=== PATIENT | female | born 1960 | race Caucasian/White ===

== ENCOUNTER 2017-10-15 12:02 | Inpatient (IN) ==
[2017-10-15] MEDS ORDERED: 0.9 % Sodium Chloride 1,000 ML IVC ONE (12:20)
--- NOTE | 2017-10-15 12:24 | Emergency Department Note ---
Disposition Clinical Impression: Acute bronchitis Qualifiers: Bronchitis organism: unspecified organism Qualified Code(s): J20.9 - Acute bronchitis, unspecified Dyspnea Qualifiers: Dyspnea type: shortness of breath Qualified Code(s): R06.02 - Shortness of breath Disposition: Admitted As Inpatient Condition: Good Referrals: Ko Rivera MD [Primary Care Provider] - Zen Tavares [Family Provider] - Forms: ED Satisfaction Letter Time of Disposition: 14:54 General Adult HPI - General Chief complaint: ED Shortness of Breath/Dyspnea Stated complaint: ANCELMO Time Seen by Provider: 10/15/17 12:06 Source: patient Limitations: no limitations Nursing Notes Reviewed: Yes Vital Signs Reviewed: Yes - History of Present Illness HPI Narrative: Ms. Mcrae is a very pleasant 57-year-old female with a past history of hypertension and prior pulmonary embolus who presents to the [facility] Emergency department with a chief complaint of dyspnea for 1 month's duration. She complains of associated productive cough and mild discomfort between her scapula with breathing. She denies any fevers. She reports this increased work of breathing has not progressively worse over the last 30 days and was seen last week at a urgent care and was diagnosed with bronchitis. She was given a Z-Danial and steroids and inhaler. Patient finished her regimen 2 days ago and noted no significant improvement in her symptoms. She denies any externional chest pain. Denies any lower extremity edema or recent travel. She reports she had a pulmonary embolus roughly 30 years ago and has had no complications since then. No other complaints at this time. Pain Scale: 4 - Related Data Home Medications Medication Instructions Recorded Confirmed Venlafaxine HCl [Venlafaxine HCl 75 mg PO DAILY 10/09/17 10/15/17 ER] Atenolol [Tenormin] 50 mg PO DAILY 10/15/17 10/15/17 Chlorthalidone 25 mg PO DAILY 10/15/17 10/15/17 Codeine Phosphate/Guaifenesin 5 ml PO Q6H 10/15/17 10/15/17 [Robafen AC Oral Solution] Loratadine [Allergy Relief] 10 mg PO DAILY 10/15/17 10/15/17 Allergies Allergy/AdvReac Type Severity Reaction Status Date / Time lisinopril Allergy Anaphylaxis Verified 10/15/17 12:06 Review of Systems: Constitutional: No fever Vision: No blurred vision ENT: No rhinorrhea Respiratory: cough Cardiovascular: No chest pain Allergic: No allergies : No blood in urine GI: No blood in stool Hematologic: No bruising Dermatologic: No skin rash Musculoskeletal: No pain in the extremities Neuro: No numbness of the extremities Past Medical History - Past Medical History Medical history: Reports: hypertension Psychiatric history: Reports: depression - Social History Smoking Status: Never smoker Smokeless Tobacco Status: No Alcohol use: Reports: none Drug use: Reports: none Physical Exam CONSTITUTIONAL: Alert and oriented X3 in no apparent distress HEAD: Normocephalic; atraumatic. EYES: Ocular movements grossly intact, no scleral icterus, no drainage, no conjunctival injection NOSE: The nose is normal in appearance without rhinorrhea Oropharynx: pink/moist RESP: NRD without use of accessory musculature, CTA b/l with no wheezes/rales/ rhonchi CARD: Regular rhythm, without murmurs, rubs, or gallop ABD: grossly normal, soft, non-tender, no guarding/distention/rigidity SKIN: normal appearance, no pallor/diaphoresis,mottling,jaundice,cyanosis EXT: PT pulses 2+ and symmetrical; no lateralizing edema; no other lesions seen PSYCH: appropriate mood/affect - General Limitations: no limitations General appearance: alert, in no apparent distress Course Course Narrative: Patient seen and examined at bedside at 1215. Vital signs were reviewed and normal. No tachycardia or hypoxia. Physical examination demonstrates lungs are clear to auscultation bilaterally with patient showing a mild increase work of breathing during examination. No accessory muscle use. Lower extremity examination demonstrates no lateralizing edema. The presence of one month duration of worsening dyspnea and history of pulmonary embolus suspicion for PE at this time. Patient is only complaining of dyspnea and cough. Denies any anginal chest pain at this time. We will begin workup with CTA of the chest, 12 -lead, chest x-ray, CBC, BMP and troponin. 1 L of IV fluids were administered. Patient appears comfortable at this time. Disposition pending. 1243: Repeat EKG showing slight ST elevations in III and AVF with ST depression in AVL when compared to previous at 1105 today from [facility]. Called on-call search advertising strategist within ten minutes, Dr. Mario who will come to the ED for further review. Initial trop neg. He recommended repeating EKGs with deep inspiration and exhalation. Of note, three consecutive EKGs did not drastically change the electrical conductivity of EKG in leads III AVF, and AVL but does fluctuate towards baseline. We will proceed with CTA chest to rule out PE, gave ASA and ACS dosing heparin for now. Patient denied any active bleeding. 1337: CBC and BMP show mild leukocytosis fo 12.7 and potassium 2.8. Potassium rider given. Repeat trop ordered. 1359: CTA showed no acute pulmonary embolus or other abnormality. Will discuss results with Dr. Mario pending trop result to determine if LHC is recommended today. 1431: Repeat trop neg. Patient is not experiencing any chest pain at this time. Discussed case with Dr. Mario who recommended no catherization but admission for observation. He will follow patient during her stay. Will begin treatment for bronchitis and possible RAD. Duoneb and RIP ordered. Patient understands and agrees to plan. 1513: Spoke with Hospitalist, Dr. Ken who accepted patient for observation. Shared decision making was made with patient and agreed to plan. Vital Signs Temperature 97.3 F L 10/15/17 12:03 Pulse Rate 50 10/15/17 12:03 Respiratory Rate 18 10/15/17 12:03 Blood Pressure 168/81 10/15/17 12:03 O2 Sat by Pulse Oximetry 96 10/15/17 12:03 Temperature 97.3 F L 10/15/17 12:03 Pulse Rate 50 10/15/17 12:03 Respiratory Rate 18 10/15/17 12:03 Blood Pressure 168/81 10/15/17 12:03 O2 Sat by Pulse Oximetry 96 10/15/17 12:03 Oxygen Delivery Oxygen Delivery Room Air Medical Decision Making - Medical Records Medical records reviewed: Yes I reviewed the patient's medical records. - Lab Data Lab results reviewed: Yes I reviewed the patient's lab results. Result diagrams: 10/15/17 12:29 10/15/17 12:29 Lab Results 10/15/17 10/15/17 10/15/17 Range/Units 12:29 12:29 12:29 WBC 12.7 H (4.3-11.1) K/mcL RBC 5.01 H (3.82-4.97) M/mcL Hgb 15.3 (11.5-15.4) g/dL Hct 43.5 (35.3-44.9) % MCV 86.8 (83.0-100.0) fL MCH 30.5 (28.0-33.3) pg MCHC 35.2 (31.6-35.5) g/dL RDW 13.8 (11.5-14.5) % Plt Count 333 (140-400) K/mcL MPV 9.9 (9.4-12.4) fL Immature Gran % 2.2 (0-4) % Seg Neutrophils % 73.3 % Lymphocytes % 19.4 % Monocytes % 3.7 % Eosinophils % 0.9 % Basophils % 0.5 % Neutrophils # 9.3 H (1.6-8.9) K/mcL Lymphocytes # 2.5 (0.6-4.6) K/mcL Monocytes # 0.5 (0.0-1.3) K/mcL Eosinophils # 0.1 (0.0-0.6) K/mcL Basophils # 0.1 (0.0-0.2) K/mcL PT 10.5 (9.4-12.1) Seconds INR 1.0 APTT 27.3 (26.0-36.0) Seconds Sodium 138 (136-145) mEq/L Potassium 2.8 L (3.5-5.1) mEq/L Chloride 102 (98-107) mEq/L Carbon Dioxide 25 (23-29) mEq/L BUN 17 (6-20) mg/dL Creatinine 0.70 (0.60-1.20) mg/dL Est GFR ( Amer) > 60 (> 60) Est GFR (Non-Af Amer) > 60 (> 60) BUN/Creatinine Ratio 24 (6-26) Glucose 114 H (70-105) mg/dL Calculated Osmolality 288 (280-300) Calcium 9.8 (8.6-10.3) mg/dL Troponin I < 0.03 (< 0.04) ng/mL 10/15/17 Range/Units 13:54 WBC (4.3-11.1) K/mcL RBC (3.82-4.97) M/mcL Hgb (11.5-15.4) g/dL Hct (35.3-44.9) % MCV (83.0-100.0) fL MCH (28.0-33.3) pg MCHC (31.6-35.5) g/dL RDW (11.5-14.5) % Plt Count (140-400) K/mcL MPV (9.4-12.4) fL Immature Gran % (0-4) % Seg Neutrophils % % Lymphocytes % % Monocytes % % Eosinophils % % Basophils % % Neutrophils # (1.6-8.9) K/mcL Lymphocytes # (0.6-4.6) K/mcL Monocytes # (0.0-1.3) K/mcL Eosinophils # (0.0-0.6) K/mcL Basophils # (0.0-0.2) K/mcL PT (9.4-12.1) Seconds INR APTT (26.0-36.0) Seconds Sodium (136-145) mEq/L Potassium (3.5-5.1) mEq/L Chloride (98-107) mEq/L Carbon Dioxide (23-29) mEq/L BUN (6-20) mg/dL Creatinine (0.60-1.20) mg/dL Est GFR ( Amer) (> 60) Est GFR (Non-Af Amer) (> 60) BUN/Creatinine Ratio (6-26) Glucose (70-105) mg/dL Calculated Osmolality (280-300) Calcium (8.6-10.3) mg/dL Troponin I < 0.03 (< 0.04) ng/mL - Radiology Data Radiology results reviewed: Yes I reviewed the patient's radiology results. Chest CTA 10/15/17 12:20 IMPRESSION: No evidence of pulmonary embolism or acute pulmonary abnormality. D/ / Matheus Gutierres MD / Matheus Gutierres MD Interpreting Provider: Matheus Gutierres MD - EKG Data EKG #1 EKG attestation: Yes I reviewed and interpreted this EKG. EKG results narrative: 1243: Current 47, CT 152, QRS 110, QTC 42% with sinus bradycardia. There are mild ST elevations in 3 and aVF with reciprocal changes in aVL. There are new Q waves present in leads 3 and aVF as well. EKG #2 EKG attestation: Yes I reviewed and interpreted this EKG. EKG results narrative: 1315: Heart rate 52, CT 150, QRS 110, QTC 42 systolic sinus bradycardia. EKG was performed holding deep inspiration. No definitive changes seen in the prior minimal ST elevations in lead 3 and aVF with reciprocal changes in aVL. EKG #3 EKG attestation: Yes I reviewed and interpreted this EKG. EKG results narrative: 1316: Heart rate 47, CT 131, QRS 110 and QTC 471. Consistent with sinus bradycardia. This EKG is performed with holding deep expiration. There is minimal progression of the ST elevations in lead 3 and aVF with reciprocal changes to the baseline. EKG #4 EKG attestation: Yes I reviewed and interpreted this EKG. EKG results narrative: 1316: Heart rate 54, CT 149, QRS 114, QTc 47 consistent with sinus bradycardia. The study was performed with patient holding deep inspiration at a 30 degree incline. There is mild progression of the minimal ST elevation in lead 3 and aVF towards the baseline with reciprocal changes in aVL. Attestation Statement - Attestation Attestation: I, Jai Uribe DO, examined this patient [id number] and my medical decision-making was reviewed with Ham Perez PGY-1, Resident Physician. I agree with the documented findings, disposition and treatment plan as described except to the extent set forth below. Please see my progress notes for details.
[2017-10-15 12:37] LABS: Basophils # 0.1 K/mcL (0.0-0.2); Basophils % 0.5 %; Eosinophils # 0.1 K/mcL (0.0-0.6); Eosinophils % 0.9 %; Hematocrit 43.5 % (35.3-44.9); Hemoglobin 15.3 g/dL (11.5-15.4); Immature Granulocytes % 2.2 % (0-4); Lymphocytes # 2.5 K/mcL (0.6-4.6); Lymphocytes % 19.4 %; Mean Corpuscular HGB Conc 35.2 g/dL (31.6-35.5); Mean Corpuscular Hemoglobin 30.5 pg (28.0-33.3); Mean Corpuscular Volume 86.8 fL (83.0-100.0); Mean Platelet Volume 9.9 fL (9.4-12.4); Monocytes # 0.5 K/mcL (0.0-1.3); Monocytes % 3.7 %; Neutrophils # 9.3 K/mcL (1.6-8.9); Platelet Count 333 K/mcL (140-400); Red Blood Count 5.01 M/mcL (3.82-4.97); Red Cell Distribution Width 13.8 % (11.5-14.5); Segmented Neutrophils % 73.3 %
[2017-10-15 13:03] LABS: BUN/Creatinine Ratio 24 (6-26); Blood Urea Nitrogen 17 mg/dL (6-20); Calcium 9.8 mg/dL (8.6-10.3); Carbon Dioxide 25 mEq/L (23-29); Chloride 102 mEq/L (98-107); Glucose 114 mg/dL (70-105); Osmolality,Calculated 288 (280-300); Potassium 2.8 mEq/L (3.5-5.1); Sodium 138 mEq/L (136-145); Troponin I < 0.03 ng/mL (< 0.04); eGFR For African Americans > 60 (> 60); eGFR For Non-African Americans > 60 (> 60)
[2017-10-15] MEDS ORDERED: Aspirin 81 MG TAB.CHEW PO STA (13:12)
--- NOTE | 2017-10-15 13:21 | Emergency Department Note ---
Disposition Clinical Impression: Acute bronchitis, Dyspnea Disposition: Admitted As Inpatient Condition: Good Time of Disposition: 16:48 General Adult HPI - General Chief complaint: ED Shortness of Breath/Dyspnea Stated complaint: ANCELMO Time Seen by Provider: 10/15/17 12:06 Source: patient Limitations: no limitations - History of Present Illness Pain Scale: 4 - Related Data Home Medications Medication Instructions Recorded Confirmed Venlafaxine HCl [Venlafaxine HCl 75 mg PO DAILY 10/09/17 10/09/17 ER] Atenolol [Tenormin] 50 mg PO DAILY 10/15/17 10/15/17 Chlorthalidone 25 mg PO DAILY 10/15/17 10/15/17 Codeine Phosphate/Guaifenesin 5 ml PO Q6H 10/15/17 10/15/17 [Robafen AC Oral Solution] Loratadine [Allergy Relief] 10 mg PO DAILY 10/15/17 10/15/17 Allergies Allergy/AdvReac Type Severity Reaction Status Date / Time lisinopril Allergy Anaphylaxis Verified 10/15/17 12:06 Past Medical History - Past Medical History Medical history: Reports: hypertension Psychiatric history: Reports: depression - Social History Smoking Status: Never smoker Smokeless Tobacco Status: No Alcohol use: Reports: none Drug use: Reports: none Physical Exam - General Limitations: no limitations General appearance: alert, in no apparent distress Course Vital Signs Temperature 97.3 F L 10/15/17 12:03 Pulse Rate 50 10/15/17 12:03 Respiratory Rate 18 10/15/17 12:03 Blood Pressure 168/81 10/15/17 12:03 O2 Sat by Pulse Oximetry 96 10/15/17 12:03 Temperature 98.2 F 10/15/17 16:20 Pulse Rate 56 10/15/17 16:20 Respiratory Rate 16 10/15/17 16:20 Blood Pressure 125/75 10/15/17 16:20 O2 Sat by Pulse Oximetry 94 10/15/17 16:20 Oxygen Delivery Oxygen Delivery Room Air Medical Decision Making - Lab Data Result diagrams: 10/15/17 12:29 10/15/17 12:29 Lab Results 10/15/17 10/15/17 10/15/17 Range/Units 12:29 12:29 12:29 WBC 12.7 H (4.3-11.1) K/mcL RBC 5.01 H (3.82-4.97) M/mcL Hgb 15.3 (11.5-15.4) g/dL Hct 43.5 (35.3-44.9) % MCV 86.8 (83.0-100.0) fL MCH 30.5 (28.0-33.3) pg MCHC 35.2 (31.6-35.5) g/dL RDW 13.8 (11.5-14.5) % Plt Count 333 (140-400) K/mcL MPV 9.9 (9.4-12.4) fL Immature Gran % 2.2 (0-4) % Seg Neutrophils % 73.3 % Lymphocytes % 19.4 % Monocytes % 3.7 % Eosinophils % 0.9 % Basophils % 0.5 % Neutrophils # 9.3 H (1.6-8.9) K/mcL Lymphocytes # 2.5 (0.6-4.6) K/mcL Monocytes # 0.5 (0.0-1.3) K/mcL Eosinophils # 0.1 (0.0-0.6) K/mcL Basophils # 0.1 (0.0-0.2) K/mcL PT 10.5 (9.4-12.1) Seconds INR 1.0 APTT 27.3 (26.0-36.0) Seconds Sodium 138 (136-145) mEq/L Potassium 2.8 L (3.5-5.1) mEq/L Chloride 102 (98-107) mEq/L Carbon Dioxide 25 (23-29) mEq/L BUN 17 (6-20) mg/dL Creatinine 0.70 (0.60-1.20) mg/dL Est GFR ( Amer) > 60 (> 60) Est GFR (Non-Af Amer) > 60 (> 60) BUN/Creatinine Ratio 24 (6-26) Glucose 114 H (70-105) mg/dL Calculated Osmolality 288 (280-300) Calcium 9.8 (8.6-10.3) mg/dL Troponin I < 0.03 (< 0.04) ng/mL 10/15/17 Range/Units 13:54 WBC (4.3-11.1) K/mcL RBC (3.82-4.97) M/mcL Hgb (11.5-15.4) g/dL Hct (35.3-44.9) % MCV (83.0-100.0) fL MCH (28.0-33.3) pg MCHC (31.6-35.5) g/dL RDW (11.5-14.5) % Plt Count (140-400) K/mcL MPV (9.4-12.4) fL Immature Gran % (0-4) % Seg Neutrophils % % Lymphocytes % % Monocytes % % Eosinophils % % Basophils % % Neutrophils # (1.6-8.9) K/mcL Lymphocytes # (0.6-4.6) K/mcL Monocytes # (0.0-1.3) K/mcL Eosinophils # (0.0-0.6) K/mcL Basophils # (0.0-0.2) K/mcL PT (9.4-12.1) Seconds INR APTT (26.0-36.0) Seconds Sodium (136-145) mEq/L Potassium (3.5-5.1) mEq/L Chloride (98-107) mEq/L Carbon Dioxide (23-29) mEq/L BUN (6-20) mg/dL Creatinine (0.60-1.20) mg/dL Est GFR ( Amer) (> 60) Est GFR (Non-Af Amer) (> 60) BUN/Creatinine Ratio (6-26) Glucose (70-105) mg/dL Calculated Osmolality (280-300) Calcium (8.6-10.3) mg/dL Troponin I < 0.03 (< 0.04) ng/mL Attestation Statement - Attestation Attestation: I, Jai Uribe DO, examined this patient [id number] and my medical decision-making was reviewed with Ham Perez PGY-1, Resident Physician. I agree with the documented findings, disposition and treatment plan as described except to the extent set forth below. Please see my progress notes for details. 57-year-old female presents to the emergency room with persistent nonproductive cough for the last 3 weeks. She is also describes pain in her back. Patient denied any active chest pain this point. She said her symptoms are worse when she breathes. The symptoms of been the same over the last several weeks troponin progressively getting worse. She was seen an outside urgent care approximately 1 hour 45 minutes prior to coming in our emergency room. She presented here describing the chest discomfort and cough. She did not describe any anginal-like chest pain. EKG was collected at 1243 during the initial evaluation the patient. There was concerning changes with possible 0.5 mm elevation in lead 3 and aVF. I compared this to the EKG done approximately an hour and 45 minutes prior to coming in here and this does show changes at this point. Stimulator was not called upon to the molding fitter was contacted considering said infarct probably old. Patient's symptoms are not consistent with angina this point. Patient will most including catheterization. Dr. Mario has come down review the EKG and the presentation at the bedside here in the emergency room and recommended catheterization at this time. Patient's symptoms and presentation were here to the emergency room EKG was collected 1240. Initial EKG for comparison is from the outside facility. Patient was not describing chest pain on presentation she only had a productive cough and shortness of breath. Patient also had some pain radiate into the mid scapular region of her back. Patient arrived to emergency room while we were the bedside with a critically ill patient. Patient's EKG was collected approximately 35 minutes after arrival here. compared to the one that was collected approximate 1 hour 45 minutes prior to arrival. There was changes noted at this time so an immediate repeat EKG was collected Within 5 minutes. A repeat EKG and is evaluated at 1243. Immediately the distributor of directories was contacted for his interpretation. There is concern for subtle 0.5 elevation in leads 3 and aVF with reciprocal changes and depression in lead aVL. Dr. Mario was immediately at the bedside here in the emergency room and evaluated the patient. 3 repeat EKGs are completed under the direct visualization Dr. Mario. At this point an emergent STEMI will not be called considering there is a wandering baseline in the ST segment portion of leads 3 and aVL dependent on the patient's position. He did recommend a repeat troponin and The patient on heparin drip and getting a CT angiography of the chest at this time. Patient is otherwise been clinically stable. Initial presentation was concerning for pulmonary emboli considering the patient's history non-productive cough and the presenting issue is a persistent cough and shortness of breath. Patient will most likely require catheterization during the treatment course. We will continue to monitor closely as imaging modality is resulted and disposition is determined. Currently the patient does not meet STEMI criteria based on the conversations with the molding fitter as well as the repeat EKGs and will be held at this point is for the patient did not present with typical chest pain-like presentation. She is describing shortness of breath and pain in between her shoulder blades in her back. Patient's had an event like this previously in the past and negative catheterization at this time. Decisions for cardiac catheterization progression course of care were made in conjunction with the patient, Dr. Mario, and myself. 45 minutes of critical care of this patient's treatment course at this time. Emergent CT angiography of the chest to be completed at this time. See detailed documentation of the physical exam, medical intervention, medical decision- making and disposition in the resident physician's note. 1400 CT angiography of the chest is unremarkable for pulmonary emboli or signs of infiltrate at this point. 1435 Repeat troponin is negative. Dr. Mario was informed of this. Recommended no catheterization but admission for further treatment course and management. Patient otherwise clinically stable. Repeat bradycardia treatment will be given to continue to treat with the suspected his bronchitis and reactive airway disease. Otherwise her labs are completely unremarkable this point she has no symptoms or pain. Patient did have slightly low potassium will be repleted here in the emergency room. She has a slightly elevated white blood cell count is could be because of the vomiting as well as the coughing and congestion. No clinical signs of pneumonia based on CT scan or chest x-ray. Patient was admitted to the hospitalist this time for definitive management and evaluation
[2017-10-15] MEDS ORDERED: *HR* Heparin 5,000 UNIT/ML VIAL IVP PRN ×2 (13:22)
[2017-10-15] MEDS ORDERED: *HR* Heparin 5,000 UNIT/ML VIAL IVP ONE (13:22)
[2017-10-15 13:41] LABS: Prothrombin Time 10.5 Seconds (9.4-12.1)
[2017-10-15 13:44] LABS: Activated Partial Thrombo Time 27.3 Seconds (26.0-36.0)
[2017-10-15] MEDS: Heparin 25,000 UNIT/500 ML D5W 25,000 UNIT/500 ML BAG IVC SCH (14:05)
[2017-10-15] MEDS ORDERED: Ipratropium/Albuterol Neb 3 ML IH ONE (14:18)
[2017-10-15] MEDS ORDERED: Naloxone 0.4 MG/ML INJ IVP PRN (16:15)
[2017-10-15] MEDS ORDERED: MethylPREDNISolone 40 MG/ML VIAL IVP ONE (16:37)
--- NOTE | 2017-10-15 16:43 | Internal Med History&Physical ---
Date of Encounter: 10/15/17 Time of Encounter: 15:30 Internal Medicine - H&P: HPI Chief complaint: SOB/Dyspnea Admitted From: Emergency Dept Plans for Post Hospital Care: Home History of present illness: Ms. Mcrae is a 57 year old female w/PMH of HTN and HLD presents from the ED w/ CC of SOB and dyspnea since September 29. Pt. states she went to Urgent Care and was dx w/bronchitis and placed on PO Z-pack and steroids w/no improvement. Reports unproductive cough and dizziness w/ambulation. Dyspnea worse w/ exertion. Reports tessalon did not help cough. Also reports chronic bradycardia w/HR in 40s occasionally. Pt. denies recent illness, fever, chills, nausea, vomiting, changes in vision, headache, chest pain, palpitations, numbness, tingling, pre-syncope, or syncope. Past Med Surg Social Fam HX - Past Medical History Source: patient, old records reviewed Medical history: hyperlipidemia, hypertension Psychiatric history: depression - Social History Smoking Status: Former smoker Packs per day: 2 PPD - Reports quitting 35 years ago Smokeless Tobacco Status: No Alcohol use: none Drug use: none Current living situation: Home, With Family Activity Level: Independent ambulation Recent Out of Country Travel Within the Last 8 Weeks: No Exposure or Possible Exposure to Illness During Travel: No - Family History Father Race: Family Member Ethnicity: Non- Living Status: Age at : 62 Cause of : Pneumonia Hx Family Cardiac Disorders: Yes ([place]) Hx Family Cancer: Yes (Skin, Prostate) Hx Family Neurologic Disorders: Yes (Alzheimer's disease) Mother Race: Family Member Ethnicity: Non- Living Status: Age at : 63 Cause of : Leukemia Hx Family Cancer: Yes (Leukemia) Brother Race: Family Member Ethnicity: Non- Living Status: Still Living Hx Family Medical Disorders: No Sister Race: Family Member Ethnicity: Non- Living Status: Still Living Hx Family Cardiac Disorders: Yes (HTN) Internal Medicine - H&P: Meds Venlafaxine HCl [Venlafaxine HCl ER] 75 mg PO DAILY 10/09/17 [History] Atenolol [Tenormin] 50 mg PO DAILY 10/15/17 [History] Chlorthalidone 25 mg PO DAILY 10/15/17 [History] Codeine Phosphate/Guaifenesin [Robafen AC Oral Solution] 5 ml PO Q6H 10/15/17 [ History] Loratadine [Allergy Relief] 10 mg PO DAILY 10/15/17 [History] 3 Allergy/AdvReac Type Severity Reaction Status Date / Time lisinopril Allergy Anaphylaxis Verified 10/15/17 12:06 All Systems PM: A 10-system review of systems was performed and is negative for pertinent findings except as documented above in the HPI. - Constitutional Constitutional: no chills, no fever(s), no night sweats - EENT Eyes: no change in vision, no discharge, no pain, no photophobia Ears: no ear discharge, no ear pain, no tinnitus Nose, mouth and throat: no dysphagia, no nasal discharge, no neck pain, no sore throat - Breasts Breasts: as per HPI - Cardiovascular Cardiovascular ROS IM: as per HPI, dyspnea, dyspnea on exertion, irregular heart rhythm (Chronic bradycardia), no chest pain, no diaphoresis, no lightheadedness, no palpitations, no syncope - Respiratory Respiratory: as per HPI, cough, dyspnea on exertion, no dyspnea, no wheezing, no excessive phlegm production - Gastrointestinal Gastrointestinal: no abdominal pain, no diarrhea, no hematemesis, no hematochezia, no melena, no nausea, no vomiting - Genitourinary Genitourinary: no change in urinary stream, no dysuria, no flank pain, no hematuria Menstruation: as per HPI - Musculoskeletal Musculoskeletal ROS IM: no numbness, no tingling - Integumentary Integumentary IM: no rash, no unusual bruising - Neurological Neurological ROS: as per HPI, dizziness, no confusion, no convulsions, no focal weakness, no numbness, no tingling, no tremor(s) - Psychiatric Psychiatric: as per HPI, depression - Endocrine Endocrine IM: as per HPI - Hematologic/Lymphatic Hematologic/Lymphatic: no easy bruising - Allergic/Immunologic Allergic/Immunologic: as per HPI - Constitutional Vitals: Temp Pulse Resp BP Pulse Ox 98.2 F 56 16 125/75 94 10/15/17 16:20 10/15/17 16:20 10/15/17 16:20 10/15/17 16:20 10/15/17 16:20 General appearance: Present: cooperative, mild distress (Respiratory w/cough), A &O X 3, morbidly obese, pleasant, answers questions appropriately - Head Head exam: Present: atraumatic, normocephalic - Eye Eye exam: Present: PERRL, conjuntiva pink, sclera anicteric Pupils: Present: PERRL - ENT ENT exam: Present: normal exam - Neck Neck exam general surgery: Present: normal inspection, supple, trachea midline. Absent: lymphadenopathy - Respiratory Respiratory exam: Present: decreased breath sounds - Cardiovascular Cardiovascular exam: Present: bradycardia, +S1, +S2 - GI/Abdominal GI/Abdominal exam: Present: normal bowel sounds, soft, no peritoneal signs. Absent: distended, tenderness - Rectal Rectal exam: Present: deferred - Additional comments: exam deferred. - Extremities Exam Extremities exam: Present: warm, radial pulses palpable and symmetrical. Absent : calf tenderness, cyanotic, pedal edema - Back Exam Back exam: Present: normal inspection - Neurological Exam Neurological exam: Present: CN II-XII intact, oriented X3, no focal deficits. Absent: pronater drift, facial droop, speech deficit - Psychiatric Psychiatric exam: Present: normal affect, normal mood - Skin Skin exam: Present: dry, intact Internal Med - H&P Results - Labs CBC & Chem 7: 10/15/17 12:29 10/15/17 12:29 - EKG Data EKG shows normal: sinus rhythm - EKG Data Prior EKG available for review: yes EKG comments: 10/15/17 16:50 EKG dated 10/15/17 @ 11:05:59 shows sinus bradycardia with moderate intraventricular conduction delay and moderate ST depression. EKG dated 10/15/17 @ 12:43:18 shows sinus bradycardia with left ventricular hypertrophy and ST-T change, inferior myocardial infarction [40+ ms Q wave and/ or ST/T abnormality in II/aVF] (probably old). EKG dated 10/15/17 @ 13:15:35 shows sinus bradycardia with inferior myocardial infarction [40+ ms Q wave and/or ST/T abnormalitu in II/aVF] (probably old). EKG dated 10/15/17 @ 13:16:18 shows sinus bradycardia with possible inferior myocardial infarction [30 ms Q wave in II/aVF] (probably old). EKG dated 10/15/17 @ 13:16:58 shows sinus bradycardia with inferior myocardial infarction [40+ ms Q wave and/or ST/T abnormality in II/aVF] (probably old). - Diagnostic Studies Other Images Additional comments: Impressions Chest CTA 10/15/17 12:20 IMPRESSION: No evidence of pulmonary embolism or acute pulmonary abnormality. D/ / Matheus Gutierres MD / Matheus Gutierres MD Interpreting Provider: Matheus Gutierres MD - Assessment and plan (1) Acute bronchitis Current Visit: Yes Status: Acute Assessment and plan: Acute bronchitis. Pt. reports dx at Urgent Care one week ago and Rx for PO Z- pack and steroids which pt. states were ineffective. IVPB doxycycline 100 mg Q12HR ordered for infection coverage. Respiratory infection panel. Supplemental O2 w/titration and SpO2 monitoring. Xopenex 1.25 Q6HR. Mucinex for cough. Current WBC 12.7 on admission. Will monitor pt. and f/u labs. Pt. discussed w/ Dr. Ken who agrees w/plan of care. Pt. is moderate risk for further morbidity and infection based on current unresolved bronchitis from failed OP tx , SOB/Dyspnea, abnormal EKGs, hx, and risk factors. Observation. Qualifiers: Bronchitis organism: unspecified organism Qualified Code(s): J20.9 - Acute bronchitis, unspecified (2) Abnormal EKG Current Visit: Yes Status: Acute Assessment and plan: Series of abnormal EKGs today showing slight ST elevations in II and aVF when compared to earlier EKG at [facility]. Cardiology saw pt. in ED. Dr. Mario recommends observation admission w/o [facility]. Heparin drip started in ED. Initial troponin <0.03 and will trend. Aspirin. Continuous cardiac telemetry. Pt. to be monitored closely. (3) Hypokalemia Current Visit: Yes Status: Acute Assessment and plan: Acute hypokalemia w/potassium of 2.8 on admission. IVPB potassium ordered in ED. Will re-check potassium @ 23:00 and administer PO potassium if warranted. Monitor pt. and f/u labs. Continuous telemetry. (4) Dyspnea Current Visit: Yes Status: Acute Assessment and plan: Acute dyspnea and SOB which worsens w/exertion. SOB since September 29. Dx of bronchitis at Urgent Care. Supplemental O2 w/titration and SpO2 monitoring. Xopenex 1.25 Q6HR scheduled. Mucinex for cough. Qualifiers: Dyspnea type: shortness of breath Qualified Code(s): R06.02 - Shortness of breath; R06.00 - Dyspnea, unspecified; R06.01 - Orthopnea (5) Cough Current Visit: Yes Status: Acute Assessment and plan: Acute cough that pt. reports is unproductive. Mucinex. Xopenex IH. (6) HTN (hypertension) Current Visit: Yes Status: Chronic Assessment and plan: Hx of chronic HTN. Monitor pt. and VS. Continue pts. Atenolol and chlorthalidone. Qualifiers: Hypertension type: essential hypertension Qualified Code(s): I10 - Essential (primary) hypertension (7) HLD (hyperlipidemia) Current Visit: Yes Status: Chronic Assessment and plan: Hx of chronic HLD. Lipid panel in a.m. labs. Patient does not currently take statin. Consider adding statin the patient's home medication list based on lipid panel results if warranted. Qualifiers: Hyperlipidemia type: pure hypercholesterolemia Qualified Code(s): E78.00 - Pure hypercholesterolemia, unspecified; E78.0 - Pure hypercholesterolemia (8) DVT prophylaxis Current Visit: Yes Status: Acute Assessment and plan: Patient placed on heparin drip for ACS r/o. Monitor pt. for signs of bleeding. - Time Spent With Patient Total time spent is greater than 50% in coordination of care (as documented) at patient's floor/unit and/or counseling patient: 25 - 35 minutes
[2017-10-15 17:56] LABS: Adenovirus Not Detected (Not Detect); Bordetella Pertussis Not Detected (Not Detect); Chlamydophila pneumoniae Not Detected (Not Detect); Coronavirus 229E Not Detected (Not Detect); Coronavirus HKU1 Not Detected (Not Detect); Coronavirus NL63 Not Detected (Not Detect); Coronavirus OC43 Not Detected (Not Detect); Human Metapneumovirus Not Detected (Not Detect); Human Rhinovirus/Enterovirus Not Detected (Not Detect); Influenza A Subtype 2009 H1 Not Detected (Not Detect); Influenza A Untypeable Not Detected (Not Detect); Influenza B ***DETECTED*** (Not Detect); Mycoplasma pneumoniae Not Detected (Not Detect); Parainfluenza Virus 1 Not Detected (Not Detect); Parainfluenza Virus 2 Not Detected (Not Detect); Parainfluenza Virus 3 Not Detected (Not Detect); Parainfluenza Virus 4 Not Detected (Not Detect); Respiratory Syncytial Virus Not Detected (Not Detect)
[2017-10-15] MEDS: Doxycycline 100 MG in 0.9 % Sodium Chloride Mini Bag 100 ML IVPB SCH (18:22)
[2017-10-15] MEDS: Levalbuterol Neb 1.25 MG/3 ML IH SCH (22:25)
[2017-10-16 03:26] LABS: Basophils % 0.2 %; Hematocrit 42.3 % (35.3-44.9); Hemoglobin 14.2 g/dL (11.5-15.4); Immature Granulocytes % 1.5 % (0-4); Immature Platelets 2.8 % (1.1-6.1); Lymphocytes # 1.5 K/mcL (0.6-4.6); Lymphocytes % 11.9 %; Mean Corpuscular HGB Conc 33.6 g/dL (31.6-35.5); Mean Corpuscular Hemoglobin 29.4 pg (28.0-33.3); Mean Corpuscular Volume 87.6 fL (83.0-100.0); Mean Platelet Volume 10.1 fL (9.4-12.4); Monocytes # 0.2 K/mcL (0.0-1.3); Monocytes % 1.2 %; Platelet Count 287 K/mcL (140-400); Red Blood Count 4.83 M/mcL (3.82-4.97); Red Cell Distribution Width 13.9 % (11.5-14.5); Segmented Neutrophils % 85.2 %
[2017-10-16] MEDS: Acetaminophen 325 MG TABLET PO PRN (03:42)
[2017-10-16 03:55] LABS: Alanine Aminotransferase 24 Units/L (7-52); Albumin 3.8 g/dL (3.5-5.7); Albumin/Globulin Ratio 1.3 (1.1-2.2); Alkaline Phosphatase 56 Units/L (34-104); Aspartate Amino Transferase 19 Units/L (13-39); BUN/Creatinine Ratio 25 (6-26); Bilirubin,Total 0.3 mg/dL (0.3-1.0); Blood Urea Nitrogen 17 mg/dL (6-20); Calcium 8.9 mg/dL (8.6-10.3); Carbon Dioxide 19 mEq/L (23-29); Chloride 104 mEq/L (98-107); Chol/HDL Ratio 5.1 (0-4.9); Cholesterol 280 mg/dL (< 200); Globulin 2.9 g/dL (2.4-3.5); Glucose 187 mg/dL (70-105); HDL Cholesterol 55 mg/dL (40-59); LDL Cholesterol,Calculated 196 mg/dL (0-99); Magnesium 1.9 mg/dL (1.6-2.6); Osmolality,Calculated 290 (280-300); Potassium 3.3 mEq/L (3.5-5.1); Sodium 137 mEq/L (136-145); Total Protein 6.7 g/dL (6.4-8.9); Triglycerides 143 mg/dL (< 150); eGFR For African Americans > 60 (> 60); eGFR For Non-African Americans > 60 (> 60)
[2017-10-16] MEDS: Levalbuterol Neb 1.25 MG/3 ML IH SCH ×4 (04:11→21:58)
[2017-10-16] MEDS: Doxycycline 100 MG in 0.9 % Sodium Chloride Mini Bag 100 ML IVPB SCH ×2 (06:11→17:15)
[2017-10-16] MEDS: Loratadine 10 MG TABLET PO SCH (08:38)
[2017-10-16] MEDS: Venlafaxine XR (24 HR) 75 MG CAP.ER.24H PO SCH (08:39)
[2017-10-16 12:09] LABS: Estimated Average Glucose 146 mg/dl; Hemoglobin A1C 6.7 %
[2017-10-16] MEDS: Heparin 25,000 UNIT/500 ML D5W 25,000 UNIT/500 ML BAG IVC SCH (12:16)
--- NOTE | 2017-10-16 13:56 | Cardiology Consult Note ---
<Jose Miguel Clayton - Last Filed: 10/16/17 16:02> Date of Encounter: 10/16/17 Time of Encounter: 13:51 Assessment and Plan (1) Abnormal EKG Current Visit: Yes Status: Acute Patient EKG's were reviewed. New changes seen in lead III appear most likely to be improper lead placement. Changes seen in aVL do appear new, but are minimal. Changes in lead aVF are new but also very minimal. No changes seen in the precordial leads. In the setting of no chest pain, and negative troponin x 3 this is unlikely to be ACS. Plan: - Echo pending - Patient will undergo stress test tomorrow - Stop ACS heparin protocol at this time - Start ASA 81 mg daily (2) HLD (hyperlipidemia) Current Visit: Yes Status: Chronic LDL elevated at 196 patient may require high intensity statin Plan: - Add on atorvastatin 40mg PO - F/u outpatient for recheck and consideration for increasing dose Qualifiers: Hyperlipidemia type: pure hypercholesterolemia Qualified Code(s): E78.00 - Pure hypercholesterolemia, unspecified; E78.0 - Pure hypercholesterolemia (3) Influenza B Current Visit: Yes Status: Acute Management per primary team Discussion w patient/family: The assessment and plan as outlined above was discussed with the patient and/or family members who expressed understanding and agreement. All questions were answered. Thank you for involving us in the care of your patient. Please call with any questions. History of Present Illness Consult date: 10/16/17 Requesting physician: John Ferreira Consult reason: EKG changes Chief complaint: SOB History of present illness: Ms. Mcrae is a 57 year old female with a past medical history of hypertension, hyperlipidemia, and PCI greater than 10 years ago with no stent placement presenting initially for the complaint of shortness of breath has been going on for the past 4 weeks and has been progressively worsening over the past week. Patient was admitted for acute bronchitis and diagnosed with influenza B. The patient had 3 sets of negative troponins. In the emergency department she had an EKG that was done and areas of concern were changes in III, AVF, and aVL. These were new changes when compared to an EKG that had been done an hour and a half prior. The patient had negative troponins 3. She states the dyspnea is exertional. Patient is denying any chest pain, nausea, vomiting, or lower extremity edema. Former smoker. Past Med Surg Social Fam HX - Past Medical History Medical history: hyperlipidemia, hypertension Psychiatric history: depression - Past Surgical History Surgical History: cholecystectomy, hysterectomy, orthopedic, other - Social History Smoking Status: Former smoker Packs per day: 2 PPD - Reports quitting 35 years ago Smokeless Tobacco Status: No Alcohol use: none Drug use: none - Family History Father Race: Family Member Ethnicity: Non- Living Status: Age at : 62 Cause of : Pneumonia Hx Family Cardiac Disorders: Yes ([place]) Hx Family Cancer: Yes (Skin, Prostate) Hx Family Neurologic Disorders: Yes (Alzheimer's disease) Mother Race: Family Member Ethnicity: Non- Living Status: Age at : 63 Cause of : Leukemia Hx Family Cancer: Yes (Leukemia) Brother Race: Family Member Ethnicity: Non- Living Status: Still Living Hx Family Medical Disorders: No Sister Race: Family Member Ethnicity: Non- Living Status: Still Living Hx Family Cardiac Disorders: Yes (HTN) Medications and Allergies Venlafaxine HCl [Venlafaxine HCl ER] 75 mg PO DAILY 10/09/17 [History] Atenolol [Tenormin] 50 mg PO DAILY 10/15/17 [History] Chlorthalidone 25 mg PO DAILY 10/15/17 [History] Codeine Phosphate/Guaifenesin [Robafen AC Oral Solution] 5 ml PO Q6H 10/15/17 [ History] Loratadine [Allergy Relief] 10 mg PO DAILY 10/15/17 [History] 3 Allergy/AdvReac Type Severity Reaction Status Date / Time lisinopril Allergy Anaphylaxis Verified 10/15/17 12:06 All Systems Review: The remainder of the systems were reviewed and are negative - Constitutional Constitutional: fever(s) - Cardiovascular Cardiovascular: diaphoresis, dyspnea on exertion, no chest pain at rest, no chest pain with exertion, no dyspnea at rest, no radiating jaw, neck or arm pain , no lightheadedness, no palpitations, no rapid heart rate - Respiratory Respiratory: cough, dyspnea - Gastrointestinal Gastrointestinal: no abdominal pain, no nausea Physical Examination Vital Signs, Last 4 Hours Temp Pulse Resp BP Pulse Ox 10/16/17 11:41 97.8 F 65 16 125/74 93 General: Conversant, No Apparent Distress HEENT: Atraumatic, Normocephaly, Mucus Membranes Moist Neck: No JVD, Normal carotid pulses Cardiac: Reg Rate and Rhythm, Normal S1 and S2, No Murmur Lungs: Normal Breath Sounds, No Wheeze, Rales, Rhonchi Neuro: Alert and responsive, No focal deficits noted Abdomen: Soft, Non-Tender Skin: No rashes noted on visualized skin Musculoskeletal: No Chest Wall Tenderness Extremities: No Clubbing, No Cyanosis, No Edema, Normal Pulses Results 10/16/17 02:50 10/16/17 02:50 Lab Results 10/15/17 10/15/17 10/15/17 19:53 19:53 22:59 WBC Hgb Hct Plt Count APTT 53.9 H D Sodium Potassium 3.5 Chloride Carbon Dioxide BUN Creatinine Glucose Calcium Magnesium Total Bilirubin AST ALT Alkaline Phosphatase Troponin I < 0.03 10/16/17 10/16/17 10/16/17 02:50 02:50 02:50 WBC 13.0 H Hgb 14.2 Hct 42.3 Plt Count 287 APTT Sodium 137 Potassium 3.3 L Chloride 104 Carbon Dioxide 19 L BUN 17 Creatinine 0.67 Glucose 187 H Calcium 8.9 Magnesium 1.9 Total Bilirubin 0.3 AST 19 ALT 24 Alkaline Phosphatase 56 Troponin I < 0.03 10/16/17 10/16/17 02:50 07:51 WBC Hgb Hct Plt Count APTT 80.2 H 70.5 H Sodium Potassium Chloride Carbon Dioxide BUN Creatinine Glucose Calcium Magnesium Total Bilirubin AST ALT Alkaline Phosphatase Troponin I - EKG Interpretation EKG results cardiology: personally reviewed, sinus rhythm, other (Minmial ST changes in lead aVL and aVF. Most likely incorrect lead placement in III.) Consult Discharge Plan - Plan Referrals: Ko Rivera MD [Primary Care Provider] - 10/24/17 2:00 pm <Tana Mcnulty - Last Filed: 10/16/17 17:14> Date of Encounter: 10/16/17 - Attending Attestation I examined this patient and my medical decision-making was reviewed with the [employer]ST CONTR[employer] SUPERVISOR. I agree with the documented findings, disposition and treatment plan as described. Ms. Mcrae presents with chief complaint of SOB, found to be Influenza B positive. She denies chest pain. All ECGs were reviewed. There are nonspecific changes in lead aVL only. Troponin negative x 4. She does have risk factors for CAD. Recommend stress testing for ischemic evaluation. Patient is in agreement. Recommend aspirin and high intensity statin (LDL 196) . Assessment and Plan Discussion w patient/family: The assessment and plan as outlined above was discussed with the patient and/or family members who expressed understanding and agreement. All questions were answered. Thank you for involving us in the care of your patient. Please call with any questions. History of Present Illness History of present illness: Ms. Mcrae is a 57 year old female All Systems Review: The remainder of the systems were reviewed and are negative Physical Examination Vital Signs, Last 4 Hours Temp Pulse Resp BP Pulse Ox 10/16/17 16:20 98.3 F 65 16 111/64 90 Results 10/16/17 02:50 10/16/17 02:50 Lab Results 10/15/17 10/15/17 10/15/17 19:53 19:53 22:59 WBC Hgb Hct Plt Count APTT 53.9 H D Sodium Potassium 3.5 Chloride Carbon Dioxide BUN Creatinine Glucose Calcium Magnesium Total Bilirubin AST ALT Alkaline Phosphatase Troponin I < 0.03 10/16/17 10/16/17 10/16/17 02:50 02:50 02:50 WBC 13.0 H Hgb 14.2 Hct 42.3 Plt Count 287 APTT Sodium 137 Potassium 3.3 L Chloride 104 Carbon Dioxide 19 L BUN 17 Creatinine 0.67 Glucose 187 H Calcium 8.9 Magnesium 1.9 Total Bilirubin 0.3 AST 19 ALT 24 Alkaline Phosphatase 56 Troponin I < 0.03 10/16/17 10/16/17 02:50 07:51 WBC Hgb Hct Plt Count APTT 80.2 H 70.5 H Sodium Potassium Chloride Carbon Dioxide BUN Creatinine Glucose Calcium Magnesium Total Bilirubin AST ALT Alkaline Phosphatase Troponin I
[2017-10-16] MEDS ORDERED: Furosemide 40 MG/4 ML VIAL IVP ONE (17:00)
[2017-10-16] MEDS: *HR* Heparin 5,000 UNIT/ML VIAL SQ SCH (17:14)
--- NOTE | 2017-10-16 17:47 | Internal Med Progress Note ---
Date of Encounter: 10/16/17 Time of Encounter: 11:20 - Assessment and plan (1) Acute bronchitis Current Visit: Yes Status: Acute Assessment and plan: Acute bronchitis. Failed outpatient. Onset symptoms 3 weeks. Patient reports productive cough, body, fatigue. IVPB doxycycline 100 mg Q12HR ordered for infection coverage. Respiratory infection panel positive for Influenza B. Supplemental O2 w/titration and SpO2 monitoring. Xopenex 1.25 Q6HR. Mucinex for cough. Current WBC 13.0. No fever or tachycardia, no signs of sepsis or sirs. Nebulizer treatments, Mucinex, IV antibiotics, monitor labs labs and vitals Qualifiers: Bronchitis organism: unspecified organism Qualified Code(s): J20.9 - Acute bronchitis, unspecified (2) Dyspnea Current Visit: Yes Status: Acute Assessment and plan: Dyspnea secondary to influenza B, bronchitis. Worse with exertion. Onset approximately 3 weeks ago. Failed outpatient treatment. Plan as above Qualifiers: Dyspnea type: shortness of breath Qualified Code(s): R06.02 - Shortness of breath; R06.00 - Dyspnea, unspecified; R06.01 - Orthopnea (3) HTN (hypertension) Current Visit: Yes Status: Chronic Assessment and plan: Chronic. Continue home medications. Well controlled. Qualifiers: Hypertension type: essential hypertension Qualified Code(s): I10 - Essential (primary) hypertension (4) HLD (hyperlipidemia) Current Visit: Yes Status: Chronic Assessment and plan: Chronic. Continue statin. Qualifiers: Hyperlipidemia type: pure hypercholesterolemia Qualified Code(s): E78.00 - Pure hypercholesterolemia, unspecified; E78.0 - Pure hypercholesterolemia (5) DVT prophylaxis Current Visit: Yes Status: Acute Assessment and plan: Heparin SQ (6) Cough Current Visit: Yes Status: Acute Assessment and plan: Pt reports non-productive cough x 3 weeks. Pt failed outpatient therapy. Influenza B positive. Pt has had symptoms > 72 hours, Tamiflu not started. Mucinex, Nebulizer treatments Can consider phenergan with codeine if cough worsens. (7) Hypokalemia Current Visit: Yes Status: Acute Assessment and plan: Improved after k rider in the ER. Continue supplementation with po 20meq BID. Monitor labs. (8) Abnormal EKG Current Visit: Yes Status: Acute Assessment and plan: Patient has been evaluated by cardiology. She was placed on heparin drip in the emergency department due to EKG changes, heparin drip has been stopped. Cardiology feels that no changes seen in lead 3, likely due to improper lead placement. Changes seen in aVL and aVF are minimal. Troponins are negative. Cardiology has ordered an echocardiogram and stress for tomorrow. *Aspirin 81 mg daily. Continue telemetry - Time Spent With Patient Total time spent is greater than 50% in coordination of care (as documented) at patient's floor/unit and/or counseling patient: less than 15 minutes - Subjective Interval history: Patient was seen and assessed at bedside at 11:20 AM. Family 2 at bedside. Patient reports 3 week history of nonproductive cough with failed outpatient treatment. She denies headache, nausea, vomiting, chest pain, shortness of breath. - Constitutional Vitals: Temp Pulse Resp BP Pulse Ox 98.3 F 65 16 111/64 90 10/16/17 16:20 10/16/17 16:20 10/16/17 16:20 10/16/17 16:20 10/16/17 16:20 General appearance: Present: cooperative, mild distress (Respiratory w/cough), A &O X 3, morbidly obese, pleasant, no acute distress, answers questions appropriately - Head Head exam: Present: atraumatic, normal inspection, normocephalic - Eye Eye exam: Present: normal appearance, conjuntiva pink, sclera anicteric - Neck Neck exam general surgery: Present: normal inspection, supple, trachea midline. Absent: lymphadenopathy, tenderness - Respiratory Respiratory exam: Present: CTAB. Absent: accessory muscle use, chest wall tenderness, prolonged expiratory phase, rales, rhonchi, wheezes - Cardiovascular Cardiovascular exam: Present: RRR, +S1, +S2. Absent: diastolic murmur, gallop, rubs, systolic murmur - GI/Abdominal GI/Abdominal exam: Present: normal bowel sounds, soft. Absent: distended, hepatomegaly, tenderness - Extremities Exam Extremities exam: Present: normal capillary refill, normal inspection, warm, radial pulses palpable and symmetrical. Absent: calf tenderness, cyanotic, pedal edema, tenderness - Neurological Exam Neurological exam: Present: alert, oriented X3, no focal deficits, strengths equal and symetr throughout. Absent: altered, facial droop, speech deficit - Skin Skin exam: Present: dry, intact, normal color, warm. Absent: rash Internal Medicine: Result - Labs CBC & Chem 7: 10/16/17 02:50 10/16/17 02:50 Labs: Short CBC 10/16/17 Range/Units 02:50 WBC 13.0 H (4.3-11.1) K/mcL Hgb 14.2 (11.5-15.4) g/dL Hct 42.3 (35.3-44.9) % Plt Count 287 (140-400) K/mcL Neutrophils # 11.0 H (1.6-8.9) K/mcL BMP 10/15/17 10/16/17 22:59 02:50 Sodium 137 Potassium 3.5 3.3 L Chloride 104 Carbon Dioxide 19 L BUN 17 Creatinine 0.67 Glucose 187 H Calcium 8.9 Cardiac Enzymes 10/15/17 10/16/17 Range/Units 19:53 02:50 Troponin I < 0.03 < 0.03 (< 0.04) ng/mL Liver Function 10/16/17 Range/Units 02:50 Total Bilirubin 0.3 (0.3-1.0) mg/dL AST 19 (13-39) Units/L ALT 24 (7-52) Units/L Alkaline Phosphatase 56 (34-104) Units/L Albumin 3.8 (3.5-5.7) g/dL - ABG Interpretation ABG results: PT/INR, D-dimer PT 10.5 Seconds (9.4-12.1) 10/15/17 12:29 Consult Discharge Plan - Plan Referrals: Ko Rivera MD [Primary Care Provider] - 10/24/17 2:00 pm
[2017-10-17] MEDS: Levalbuterol Neb 1.25 MG/3 ML IH SCH ×4 (03:57→21:38)
[2017-10-17] MEDS ORDERED: Regadenoson 0.4 MG/5 ML SYRINGE IVP ONE (05:39)
[2017-10-17] MEDS: *HR* Heparin 5,000 UNIT/ML VIAL SQ SCH ×2 (06:10→17:10)
[2017-10-17] MEDS: Doxycycline 100 MG in 0.9 % Sodium Chloride Mini Bag 100 ML IVPB SCH ×2 (06:11→11:12)
[2017-10-17 06:13] LABS: Basophils # 0.1 K/mcL (0.0-0.2); Basophils % 0.6 %; Eosinophils # 0.2 K/mcL (0.0-0.6); Hematocrit 47.4 % (35.3-44.9); Hemoglobin 15.4 g/dL (11.5-15.4); Immature Granulocytes % 1.8 % (0-4); Lymphocytes # 5.4 K/mcL (0.6-4.6); Lymphocytes % 33.5 %; Mean Corpuscular HGB Conc 32.5 g/dL (31.6-35.5); Mean Corpuscular Hemoglobin 29.2 pg (28.0-33.3); Mean Corpuscular Volume 89.8 fL (83.0-100.0); Mean Platelet Volume 10.1 fL (9.4-12.4); Monocytes # 0.7 K/mcL (0.0-1.3); Monocytes % 4.3 %; Neutrophils # 9.5 K/mcL (1.6-8.9); Platelet Count 401 K/mcL (140-400); Red Blood Count 5.28 M/mcL (3.82-4.97); Red Cell Distribution Width 14.6 % (11.5-14.5); Segmented Neutrophils % 58.8 %
[2017-10-17 06:34] LABS: Alanine Aminotransferase 35 Units/L (7-52); Albumin 4.2 g/dL (3.5-5.7); Albumin/Globulin Ratio 1.3 (1.1-2.2); Alkaline Phosphatase 59 Units/L (34-104); Aspartate Amino Transferase 34 Units/L (13-39); BUN/Creatinine Ratio 23 (6-26); Bilirubin,Total 0.4 mg/dL (0.3-1.0); Blood Urea Nitrogen 18 mg/dL (6-20); Calcium 9.6 mg/dL (8.6-10.3); Carbon Dioxide 28 mEq/L (23-29); Chloride 101 mEq/L (98-107); Globulin 3.3 g/dL (2.4-3.5); Glucose 111 mg/dL (70-105); Osmolality,Calculated 293 (280-300); Potassium 4.1 mEq/L (3.5-5.1); Sodium 140 mEq/L (136-145); Total Protein 7.5 g/dL (6.4-8.9); eGFR For African Americans > 60 (> 60); eGFR For Non-African Americans > 60 (> 60)
[2017-10-17] MEDS ORDERED: Aspirin 325 MG TABLET PO SCH (09:00)
[2017-10-17] MEDS ORDERED: Perflutren Lipid Microsphere 1.3 ML in 0.9 % Sodium Chloride 8.7 ML IVP ONE (10:26)
[2017-10-17] MEDS ORDERED: Perflutren Lipid Microsphere 2 ML VIAL ONE (10:28)
[2017-10-17] MEDS: Aspirin 81 MG TAB.CHEW PO SCH ×2 (11:11→11:35)
[2017-10-17] MEDS: Venlafaxine XR (24 HR) 75 MG CAP.ER.24H PO SCH (11:12)
[2017-10-17] MEDS: Loratadine 10 MG TABLET PO SCH (11:12)
--- NOTE | 2017-10-17 15:24 | Internal Med Progress Note ---
Date of Encounter: 10/17/17 Time of Encounter: 15:22 - Assessment and plan (1) Acute bronchitis Current Visit: Yes Status: Acute Assessment and plan: Acute bronchitis. Failed outpatient. Onset symptoms 3 weeks. Patient reports productive cough, body, fatigue. Supplemental O2 w/titration and SpO2 monitoring. Xopenex 1.25 Q6HR. Mucinex for cough. IV levaquin Qualifiers: Bronchitis organism: unspecified organism Qualified Code(s): J20.9 - Acute bronchitis, unspecified (2) Influenza B Current Visit: Yes Status: Acute Assessment and plan: Symptomatic with shortness of breath and cough for the last 3 weeks. Respiratory PCR positive for influenza B. Will start tamifli given her prolonged duration of symptoms and outpatient failu(per the CDC; antivirals for influenza work best when initiated within 48 hours of illness onset; however, clinical benefit has been observed even when treatment is initiated later in some patients). (3) HTN (hypertension) Current Visit: Yes Status: Chronic Assessment and plan: Chronic. Continue home medications. Well controlled. Qualifiers: Hypertension type: essential hypertension Qualified Code(s): I10 - Essential (primary) hypertension (4) HLD (hyperlipidemia) Current Visit: Yes Status: Chronic Assessment and plan: Chronic. Continue statin. Qualifiers: Hyperlipidemia type: pure hypercholesterolemia Qualified Code(s): E78.00 - Pure hypercholesterolemia, unspecified; E78.0 - Pure hypercholesterolemia (5) Cough Current Visit: Yes Status: Acute Assessment and plan: Pt reports non-productive cough x 3 weeks. Pt failed outpatient therapy. Influenza B positive. Pt has had symptoms > 72 hours, Tamiflu not started. Mucinex, Nebulizer treatments Can consider phenergan with codeine if cough worsens. (6) Hypokalemia Current Visit: Yes Status: Acute Assessment and plan: Improved after k rider in the ER. Continue supplementation with po 20meq BID. (7) Abnormal EKG Current Visit: Yes Status: Acute Assessment and plan: EKG changes noted from Urgent care to [facility]. Serial troponins negative. Evaluated by cardiology who did not feel EKG changes were significant. Continue to monitor on telemetry. Stress echo pending. (8) DVT prophylaxis Current Visit: Yes Status: Acute Assessment and plan: Heparin SQ - Time Spent With Patient Total time spent is greater than 50% in coordination of care (as documented) at patient's floor/unit and/or counseling patient: - Subjective Interval history: Seen and examined at bedside. Patient is new to me, information obtained from chart review and patient report. Still with some shortness of breath and cough but overall he little improved. Her chest pain. No fevers or chills. - Constitutional Vitals: Temp Pulse Resp BP Pulse Ox 98.4 F 54 16 111/61 94 10/17/17 15:09 10/17/17 15:09 10/17/17 15:09 10/17/17 15:09 10/17/17 15:09 General appearance: Present: cooperative, A&O X 3, morbidly obese, pleasant, no acute distress, answers questions appropriately - Head Head exam: Present: atraumatic, normocephalic - Eye Eye exam: Present: PERRL, conjuntiva pink, sclera anicteric Pupils: Present: PERRL - Neck Neck exam general surgery: Present: supple, trachea midline. Absent: lymphadenopathy - Respiratory Respiratory exam: Present: CTAB. Absent: accessory muscle use, rales, rhonchi, wheezes - Cardiovascular Cardiovascular exam: Present: RRR, +S1, +S2. Absent: diastolic murmur, gallop, rubs, systolic murmur - GI/Abdominal GI/Abdominal exam: Present: normal bowel sounds, soft, no peritoneal signs. Absent: distended, tenderness - Extremities Exam Extremities exam: Present: warm, radial pulses palpable and symmetrical. Absent : calf tenderness, cyanotic, pedal edema - Neurological Exam Neurological exam: Present: CN II-XII intact, oriented X3, no focal deficits. Absent: pronater drift, facial droop, speech deficit - Skin Skin exam: Present: dry, intact Internal Medicine: Result - Labs CBC & Chem 7: 10/17/17 05:39 10/17/17 05:39 Labs: Short CBC 10/17/17 Range/Units 05:39 WBC 16.2 H (4.3-11.1) K/mcL Hgb 15.4 (11.5-15.4) g/dL Hct 47.4 H (35.3-44.9) % Plt Count 401 H (140-400) K/mcL Neutrophils # 9.5 H (1.6-8.9) K/mcL BMP 10/17/17 05:39 Sodium 140 Potassium 4.1 Chloride 101 Carbon Dioxide 28 BUN 18 Creatinine 0.79 Glucose 111 H Calcium 9.6 Liver Function 10/17/17 Range/Units 05:39 Total Bilirubin 0.4 (0.3-1.0) mg/dL AST 34 (13-39) Units/L ALT 35 (7-52) Units/L Alkaline Phosphatase 59 (34-104) Units/L Albumin 4.2 (3.5-5.7) g/dL - ABG Interpretation ABG results: PT/INR, D-dimer PT 10.5 Seconds (9.4-12.1) 10/15/17 12:29 Consult Discharge Plan - Plan Referrals: Ko Rivera MD [Primary Care Provider] - 10/24/17 2:00 pm
[2017-10-17] MEDS ORDERED: Levofloxacin 750 MG/150 ML 750 MG/150 ML BAG IVPB SCH (16:00)
[2017-10-17] MEDS: Acetaminophen 325 MG TABLET PO PRN (17:09)
[2017-10-17] MEDS: GuaiFENesin Liq 200 MG/10 ML UDC PO PRN (17:29)
[2017-10-18] MEDS ORDERED: Doxycycline 100 MG in 0.9 % Sodium Chloride Mini Bag 100 ML IVPB SCH
[2017-10-18] MEDS: Levalbuterol Neb 1.25 MG/3 ML IH SCH ×3 (03:19→15:54)
[2017-10-18 05:25] LABS: Basophils # 0.1 K/mcL (0.0-0.2); Basophils % 0.8 %; Eosinophils # 0.3 K/mcL (0.0-0.6); Eosinophils % 2.9 %; Hematocrit 43.8 % (35.3-44.9); Hemoglobin 14.2 g/dL (11.5-15.4); Lymphocytes # 3.2 K/mcL (0.6-4.6); Lymphocytes % 36.8 %; Mean Corpuscular HGB Conc 32.4 g/dL (31.6-35.5); Mean Corpuscular Hemoglobin 29.2 pg (28.0-33.3); Mean Corpuscular Volume 89.9 fL (83.0-100.0); Mean Platelet Volume 10.1 fL (9.4-12.4); Monocytes # 0.5 K/mcL (0.0-1.3); Monocytes % 5.8 %; Neutrophils # 4.3 K/mcL (1.6-8.9); Platelet Count 291 K/mcL (140-400); Red Blood Count 4.87 M/mcL (3.82-4.97); Red Cell Distribution Width 14.4 % (11.5-14.5); Segmented Neutrophils % 49.7 %
[2017-10-18 05:43] LABS: Alanine Aminotransferase 30 Units/L (7-52); Albumin 3.9 g/dL (3.5-5.7); Albumin/Globulin Ratio 1.4 (1.1-2.2); Alkaline Phosphatase 56 Units/L (34-104); Aspartate Amino Transferase 24 Units/L (13-39); BUN/Creatinine Ratio 20 (6-26); Bilirubin,Total 0.4 mg/dL (0.3-1.0); Blood Urea Nitrogen 15 mg/dL (6-20); Calcium 9.4 mg/dL (8.6-10.3); Carbon Dioxide 27 mEq/L (23-29); Chloride 103 mEq/L (98-107); Globulin 2.8 g/dL (2.4-3.5); Glucose 113 mg/dL (70-105); Osmolality,Calculated 294 (280-300); Potassium 3.7 mEq/L (3.5-5.1); Sodium 141 mEq/L (136-145); Total Protein 6.7 g/dL (6.4-8.9); eGFR For African Americans > 60 (> 60); eGFR For Non-African Americans > 60 (> 60)
[2017-10-18] MEDS: *HR* Heparin 5,000 UNIT/ML VIAL SQ SCH ×2 (05:59→17:57)
[2017-10-18] MEDS: Venlafaxine XR (24 HR) 75 MG CAP.ER.24H PO SCH (08:31)
[2017-10-18] MEDS: Aspirin 81 MG TAB.CHEW PO SCH (08:32)
[2017-10-18] MEDS: Loratadine 10 MG TABLET PO SCH (08:32)
--- NOTE | 2017-10-18 11:00 | Cardiology Progress Note ---
<Jose Miguel Clayton - Last Filed: 10/18/17 15:50> Date of Encounter: 10/18/17 Time of Encounter: 10:53 Assessment and Plan (1) Abnormal EKG Current Visit: Yes Status: Acute Patient EKG's were reviewed. New changes seen in lead III appear most likely to be improper lead placement. Changes seen in aVL do appear new, but are minimal. Changes in lead aVF are new but also very minimal. No changes seen in the precordial leads. In the setting of no chest pain, and negative troponin x 3 this is unlikely to be ACS. Patient symptoms are atypical. Echo reviewed: EF 60-65%. Normal LV chamber size and function. Mild concentric left ventricular hypertrophy. Mild left Ventricular diastolic dysfunction. Normal right ventricular structure and function. No evidence of pulmonary hypertension. No significant valvular dsyfunction. All wwall segments showed normal motion. Pharmacologic stress ECG is negative for ischemia at level of heart rate achieved. Gated EF = 66%. Small sized, mild intensity, reversibly apical lateral/apex defect possibly due to ischemia. Low risk positive stress test. Plan: - Stress test appreciates abnormalities involving the apical lateral/apex of the heart. Discussed with patient the risk & benefits of medical therapy vs catherization. Patient will decide by tomorrow morning, she is leaning towards cath. - NPO at midnight. - Stop ACS heparin protocol at this time - Continue ASA 81 mg, statin and BB (2) HLD (hyperlipidemia) Current Visit: Yes Status: Chronic LDL elevated at 196 patient may require high intensity statin Plan: - Add on atorvastatin 40mg PO - F/u outpatient for recheck and consideration for increasing dose Qualifiers: Hyperlipidemia type: pure hypercholesterolemia Qualified Code(s): E78.00 - Pure hypercholesterolemia, unspecified; E78.0 - Pure hypercholesterolemia (3) Influenza B Current Visit: Yes Status: Acute Management per primary team Discussion w patient/family: The assessment and plan as outlined above was discussed with the patient and/or family members who expressed understanding and agreement. All questions were answered. Thank you for involving us in the care of your patient. Please call with any questions. Subjective Principal diagnosis: inlfuenza B; EKG changes Interval history: Patient is a 57F with PMHx of HTN, HLD, and PCI greater than 10 years ago with no stent placement. Presented to the hospital for evaluation of ANCELMO that has been going on for the past month. Diagnosed with Influenza B. EKG showed abnormalities in lead II, aVF, and aVL. Upon review, abnormalities in aVF and aVL were minimal and lead III was incorrectly placed. Troponins were negative. No chest pain complaints. Patient underwent a stress echo, results pending. Objective Vital Signs, Last 4 Hours Temp Pulse Resp BP Pulse Ox 10/18/17 07:11 98.5 F 58 14 149/76 93 General: Conversant, No Apparent Distress HEENT: Atraumatic, Normocephaly, Mucus Membranes Moist Neck: No JVD, Normal carotid pulses Cardiac: Reg Rate and Rhythm, Normal S1 and S2, No Murmur Lungs: Normal Breath Sounds, No Wheeze, Rales, Rhonchi Neuro: Alert and responsive, No focal deficits noted Abdomen: Soft, Non-Tender Skin: No rashes noted on visualized skin Musculoskeletal: No Chest Wall Tenderness Extremities: No Clubbing, No Cyanosis, No Edema, Normal Pulses Results 10/18/17 04:50 10/18/17 04:50 Lab Results 10/18/17 10/18/17 04:50 04:50 WBC 8.6 Hgb 14.2 Hct 43.8 Plt Count 291 Sodium 141 Potassium 3.7 Chloride 103 Carbon Dioxide 27 BUN 15 Creatinine 0.76 Glucose 113 H Calcium 9.4 Total Bilirubin 0.4 AST 24 ALT 30 Alkaline Phosphatase 56 Consult Discharge Plan - Plan Referrals: Ko Rivera MD [Primary Care Provider] - 10/24/17 2:00 pm <Tana Mcnulty - Last Filed: 10/18/17 16:47> Date of Encounter: 10/18/17 Assessment and Plan Discussion w patient/family: I examined this patient and my medical decision-making was reviewed with the Resident Physician. I agree with the documented findings, disposition and treatment plan. Stress test results reviewed - small sized reversible defect involving the apical lateral/apex possibly due to ischemia, gated EF 66%. These findings were discussed with the patient. She reports a recent few week history of worsening fatigue, decreased exercise tolerance and dyspnea. Risk factors for CAD include postmenopausal status, HTN, HPL. We discussed the option of proceeding with LHC. The R/B/A of the procedure were discussed with the patient. She expressed understanding of the risks of the procedure. Given risk factors and recent decline in her functional status, she is contemplating proceeding. She would like to discuss with family first. Will keep NPO after midnight in case of procedure. Renal function is normal as well as Hgb and Plt. Patient able to be compliant with medical therapy. Objective Vital Signs, Last 4 Hours Temp Pulse Resp BP Pulse Ox 10/18/17 15:31 98.3 F 58 14 133/80 91 Results 10/18/17 04:50 10/18/17 04:50 Lab Results 10/18/17 10/18/17 04:50 04:50 WBC 8.6 Hgb 14.2 Hct 43.8 Plt Count 291 Sodium 141 Potassium 3.7 Chloride 103 Carbon Dioxide 27 BUN 15 Creatinine 0.76 Glucose 113 H Calcium 9.4 Total Bilirubin 0.4 AST 24 ALT 30 Alkaline Phosphatase 56
[2017-10-18] MEDS: levoFLOXacin 750 MG TABLET PO SCH (11:18)
[2017-10-18] MEDS: GuaiFENesin Liq 200 MG/10 ML UDC PO PRN (11:21)
[2017-10-18] MEDS: Acetaminophen 325 MG TABLET PO PRN ×2 (11:21→22:16)
--- NOTE | 2017-10-18 16:45 | Internal Med Progress Note ---
Date of Encounter: 10/18/17 Time of Encounter: 16:45 - Assessment and plan (1) Abnormal EKG Current Visit: Yes Status: Acute Assessment and plan: EKG changes noted from Urgent care to [facility]. Serial troponins negative. Pharmacologic stress ECG showed a small sized, mild intensity, reversibly apical lateral/apex defect possibly due to ischemia. Patient will decide by tomorrow morning, she is leaning towards cath. NPO at midnight. Continue ASA 81 mg, statin and BB (2) Acute bronchitis Current Visit: Yes Status: Acute Assessment and plan: Acute bronchitis. Failed outpatient. Onset symptoms 3 weeks prior. Patient reports productive cough, body, fatigue. Supplemental O2 w/titration and SpO2 monitoring. Xopenex 1.25 Q6HR. Mucinex for cough. Levaquin Qualifiers: Bronchitis organism: unspecified organism Qualified Code(s): J20.9 - Acute bronchitis, unspecified (3) Influenza B Current Visit: Yes Status: Acute Assessment and plan: Symptomatic with shortness of breath and cough for the last 3 weeks. Respiratory PCR positive for influenza B. Will start tamifli given her prolonged duration of symptoms and outpatient failu(per the CDC; antivirals for influenza work best when initiated within 48 hours of illness onset; however, clinical benefit has been observed even when treatment is initiated later in some patients). (4) HTN (hypertension) Current Visit: Yes Status: Chronic Assessment and plan: Chronic. Continue home medications. Well controlled. Qualifiers: Hypertension type: essential hypertension Qualified Code(s): I10 - Essential (primary) hypertension (5) HLD (hyperlipidemia) Current Visit: Yes Status: Chronic Assessment and plan: Chronic. Continue statin. Qualifiers: Hyperlipidemia type: pure hypercholesterolemia Qualified Code(s): E78.00 - Pure hypercholesterolemia, unspecified; E78.0 - Pure hypercholesterolemia (6) Cough Current Visit: Yes Status: Acute Assessment and plan: Pt reports non-productive cough x 3 weeks. Pt failed outpatient therapy. Influenza B positive. Pt has had symptoms > 72 hours, Tamiflu not started. Mucinex, Nebulizer treatments Can consider phenergan with codeine if cough worsens. (7) Hypokalemia Current Visit: Yes Status: Acute Assessment and plan: Improved after k rider in the ER. Continue supplementation with po 20meq BID. (8) DVT prophylaxis Current Visit: Yes Status: Acute Assessment and plan: Heparin SQ - Time Spent With Patient Total time spent is greater than 50% in coordination of care (as documented) at patient's floor/unit and/or counseling patient: - Subjective Interval history: Seen and examined at bedside; still have some shortness of breath and cough but overall improved. Would like to go home today if possible. No chest pain. - Constitutional Vitals: Temp Pulse Resp BP Pulse Ox 98.3 F 58 14 133/80 91 10/18/17 15:31 10/18/17 15:31 10/18/17 15:31 10/18/17 15:31 10/18/17 15:31 General appearance: Present: cooperative, A&O X 3, morbidly obese, pleasant, no acute distress, answers questions appropriately - Head Head exam: Present: atraumatic, normocephalic - Eye Eye exam: Present: PERRL, conjuntiva pink, sclera anicteric Pupils: Present: PERRL - Neck Neck exam general surgery: Present: supple, trachea midline. Absent: lymphadenopathy - Respiratory Respiratory exam: Present: CTAB. Absent: accessory muscle use, rales, rhonchi, wheezes - Cardiovascular Cardiovascular exam: Present: RRR, +S1, +S2. Absent: diastolic murmur, gallop, rubs, systolic murmur - GI/Abdominal GI/Abdominal exam: Present: normal bowel sounds, soft, no peritoneal signs. Absent: distended, tenderness - Extremities Exam Extremities exam: Present: warm, radial pulses palpable and symmetrical. Absent : calf tenderness, cyanotic, pedal edema - Neurological Exam Neurological exam: Present: CN II-XII intact, oriented X3, no focal deficits. Absent: pronater drift, facial droop, speech deficit - Skin Skin exam: Present: dry, intact Internal Medicine: Result - Labs CBC & Chem 7: 10/18/17 04:50 10/18/17 04:50 Labs: Short CBC 10/18/17 Range/Units 04:50 WBC 8.6 (4.3-11.1) K/mcL Hgb 14.2 (11.5-15.4) g/dL Hct 43.8 (35.3-44.9) % Plt Count 291 (140-400) K/mcL Neutrophils # 4.3 (1.6-8.9) K/mcL BMP 10/18/17 04:50 Sodium 141 Potassium 3.7 Chloride 103 Carbon Dioxide 27 BUN 15 Creatinine 0.76 Glucose 113 H Calcium 9.4 Liver Function 10/18/17 Range/Units 04:50 Total Bilirubin 0.4 (0.3-1.0) mg/dL AST 24 (13-39) Units/L ALT 30 (7-52) Units/L Alkaline Phosphatase 56 (34-104) Units/L Albumin 3.9 (3.5-5.7) g/dL - ABG Interpretation ABG results: PT/INR, D-dimer PT 10.5 Seconds (9.4-12.1) 10/15/17 12:29 Consult Discharge Plan - Plan Referrals: Ko Rivera MD [Primary Care Provider] - 10/24/17 2:00 pm
[2017-10-19] MEDS: *HR* Heparin 5,000 UNIT/ML VIAL SQ SCH (04:53)
[2017-10-19 04:58] LABS: Hematocrit 47.8 % (35.3-44.9); Hemoglobin 15.5 g/dL (11.5-15.4); Mean Corpuscular HGB Conc 32.4 g/dL (31.6-35.5); Mean Corpuscular Hemoglobin 29.4 pg (28.0-33.3); Mean Corpuscular Volume 90.5 fL (83.0-100.0); Mean Platelet Volume 10.5 fL (9.4-12.4); Nucleated Red Blood Cells 0.2 /100 WBC (0); Platelet Count 309 K/mcL (140-400); Red Blood Count 5.28 M/mcL (3.82-4.97); Red Cell Distribution Width 14.1 % (11.5-14.5)
[2017-10-19 05:15] LABS: Alanine Aminotransferase 30 Units/L (7-52); Albumin/Globulin Ratio 1.4 (1.1-2.2); Alkaline Phosphatase 58 Units/L (34-104); Aspartate Amino Transferase 20 Units/L (13-39); BUN/Creatinine Ratio 23 (6-26); Bilirubin,Total 0.5 mg/dL (0.3-1.0); Blood Urea Nitrogen 16 mg/dL (6-20); Carbon Dioxide 27 mEq/L (23-29); Chloride 102 mEq/L (98-107); Globulin 2.8 g/dL (2.4-3.5); Glucose 112 mg/dL (70-105); Osmolality,Calculated 288 (280-300); Potassium 3.9 mEq/L (3.5-5.1); Sodium 138 mEq/L (136-145); Total Protein 6.8 g/dL (6.4-8.9); eGFR For African Americans > 60 (> 60); eGFR For Non-African Americans > 60 (> 60)
[2017-10-19 05:18] LABS: Chol/HDL Ratio 5.4 (0-4.9); Cholesterol 259 mg/dL (< 200); HDL Cholesterol 48 mg/dL (40-59); Triglycerides 411 mg/dL (< 150)
[2017-10-19 05:22] LABS: Eosinophils # 0.6 K/mcL (0.0-0.6); Lymphocytes # 4.1 K/mcL (0.6-4.6); Monocytes # 0.4 K/mcL (0.0-1.3); Neutrophils # 5.1 K/mcL (1.6-8.9)
[2017-10-19] MEDS: Loratadine 10 MG TABLET PO SCH (08:24)
[2017-10-19] MEDS: Aspirin 81 MG TAB.CHEW PO SCH (08:25)
[2017-10-19] MEDS: levoFLOXacin 750 MG TABLET PO SCH (08:25)
[2017-10-19] MEDS: Venlafaxine XR (24 HR) 75 MG CAP.ER.24H PO SCH (08:25)
[2017-10-19] MEDS ORDERED: Heparin 1,000 UNITS/500 mL 500 ML ONE (11:19)
[2017-10-19] MEDS ORDERED: ISOVUE-370 200 ML INFUS..BTL IV ONE (11:19)
[2017-10-19] MEDS ORDERED: 0.9 % Sodium Chloride 1,000 ML ONE ×2 (11:19→11:30)
[2017-10-19] MEDS ORDERED: Nitroglycerin 1,000 MCG/10 ML VIAL IV ONE (11:19)
[2017-10-19] MEDS ORDERED: *HR* Heparin 10,000 UNIT/10 ML VIAL ONE (11:19)
[2017-10-19] MEDS ORDERED: *HR* Midazolam HCl 2 MG/2 ML VIAL ONE (11:33)
--- NOTE | 2017-10-19 11:39 | Pre-Sedation Evaluation ---
Pre-sedation evaluation - Pre-sedation checklist Date of procedure: 10/19/17 Procedure: [facility] Recent Vitals: Last Vital Signs Temp 97.9 F 10/19/17 06:43 Pulse 59 10/19/17 06:43 Resp 16 10/19/17 06:43 BP 114/70 10/19/17 06:43 Pulse Ox 98 10/19/17 06:43 H&P (including ROS) documented in medical record: Yes Previous reaction to sedatives/anesthetics: No Dietary Status: NPO after Midnight Airway Assessment: Patient can open mouth completely, TMJ function normal Dentition: No loose teeth or bridges Possible difficult airway: No ASA Classification *see protocol: CLASS III-Severe systemic disease Plan of Care: Pt appropriate candidate for procedure/moderate/conscious sedation , Risks/benefits of procedure/sedation discussed w/ patient/family, If not NPO; Risk of intake outweiged by necessity to perform procedure
--- NOTE | 2017-10-19 12:05 | Event Note ---
Date of Encounter: 10/19/17 Time of Encounter: 12:04 - Cardiology Event Note Per discussion with , Mild CAD noted per [facility]. Cardiology will sign off. Recommend follow up with PCP.
[2017-10-19] MEDS ORDERED: 0.9 % Sodium Chloride 1,000 ML IVC SCH (12:15)
--- NOTE | 2017-10-19 13:49 | Discharge Summary ---
- NOTES TO OUTPATIENT PROVIDER Notes to Outpatient Provider: Recommend follow-up within 7-10 days Orders not resulted at time of discharge: Pending orders 10/17/17 07:00 NM mariola perf SPECT multi [NM] Routine 10/19/17 09:03 CL Cardiac Catheterization [CL] Routine Date of Encounter: 10/19/17 Time of Encounter: 13:46 - Discharge Diagnosis (1) CAD (coronary artery disease) Priority: Primary Status: Acute Comments: Found to have abnormal EKG. Asymptomatic, denied chest pain. Serial troponins negative. Pharmacologic stress ECG showed a small sized, mild intensity, reversibly apical lateral/apex defect possibly due to ischemia. 10/19/17 [facility] with minimal, nonobstructive CAD; no intervention required. Recommend aggressive risk factor modification. Hgb A1c 6.8%, triglycerides 411. Encouraged dietary/lifestyle modifications. Discharge home on ASA 81 mg, statin and BB Qualifiers: Coronary Disease-Associated Artery/Lesion type: [place] artery [place] vs. transplanted heart: [place] heart Associated angina: without angina Qualified Code(s): I25.10 - Atherosclerotic heart disease of [place] coronary artery without angina pectoris (2) Acute bronchitis Priority: Primary Status: Acute Comments: Acute bronchitis. Failed outpatient. Onset symptoms 3 weeks prior. Patient reports productive cough, body, fatigue. Does improved with IV Levaquin. Discharge home on Levaquin (to complete a total 7 day course) steroid burst. Qualifiers: Bronchitis organism: unspecified organism Qualified Code(s): J20.9 - Acute bronchitis, unspecified (3) Influenza B Priority: Primary Status: Acute Comments: symptomatic with shortness of breath and cough for the last 3 weeks. Respiratory PCR positive for influenza B. Rasheedi started given her prolonged duration of symptoms and outpatient failure (per the CDC; antivirals for influenza work best when initiated within 48 hours of illness onset; however, clinical benefit has been observed even when treatment is initiated later in some patients). (4) HTN (hypertension) Priority: Primary Status: Chronic Comments: per hx. BP controlled. Cont home BP medications Qualifiers: Hypertension type: essential hypertension Qualified Code(s): I10 - Essential (primary) hypertension (5) HLD (hyperlipidemia) Priority: Primary Status: Chronic Comments: statin added Qualifiers: Hyperlipidemia type: pure hypercholesterolemia Qualified Code(s): E78.00 - Pure hypercholesterolemia, unspecified; E78.0 - Pure hypercholesterolemia Hospital course: Please see assessment and plan for Hospital course Discharge discussed with: patient (Seen and examined at bedside, she just returned from [facility]. Has some discomfort at right femoral catheter site otherwise says she feels well. No chest pain. No shortness of breath. Still have a cough but overall improved. She would like to be discharged later on this afternoon.) - Time Spent with Patient Total time spent providing and/or coordinating discharge services: - Discharge Medications Prescriptions: Aspirin 81 mg PO DAILY #30 tab.chew Atorvastatin [Lipitor] 40 mg PO HS #30 tablet levoFLOXacin [Levaquin] 750 mg PO DAILY #4 tablet Oseltamivir [Tamiflu] 75 mg PO BID #6 capsule predniSONE [PredniSONE] 40 mg PO DAILY #10 tablet Home Medications: Venlafaxine HCl [Venlafaxine HCl ER] 75 mg PO DAILY 10/09/17 [History] Atenolol [Tenormin] 50 mg PO DAILY 10/15/17 [History] Chlorthalidone 25 mg PO DAILY 10/15/17 [History] Codeine Phosphate/Guaifenesin [Robafen AC Oral Solution] 5 ml PO Q6H 10/15/17 [ History] Loratadine [Allergy Relief] 10 mg PO DAILY 10/15/17 [History] Aspirin 81 mg PO DAILY #30 tab.chew 10/19/17 [Rx] Atorvastatin [Lipitor] 40 mg PO HS #30 tablet 10/19/17 [Rx] Oseltamivir [Tamiflu] 75 mg PO BID #6 capsule 10/19/17 [Rx] levoFLOXacin [Levaquin] 750 mg PO DAILY #4 tablet 10/19/17 [Rx] predniSONE [PredniSONE] 40 mg PO DAILY #10 tablet 10/19/17 [Rx] Allergies/Adverse Reactions: 3 Allergy/AdvReac Type Severity Reaction Status Date / Time lisinopril Allergy Anaphylaxis Verified 10/15/17 12:06 Date of admission: 10/15/17 16:15 Primary care physician: Ko Rivera MD Discharging clinician: Ramonita Rodriguez Anticipated date of discharge: 10/19/17 - Constitutional Vitals: Temp Pulse Resp BP Pulse Ox 97.9 F 55 16 111/74 98 10/19/17 06:43 10/19/17 13:20 10/19/17 13:20 10/19/17 13:20 10/19/17 13:20 General appearance: Present: cooperative, A&O X 3, morbidly obese, pleasant, no acute distress, answers questions appropriately - Head Head exam: Present: atraumatic, normocephalic - Eye Eye exam: Present: PERRL, conjuntiva pink, sclera anicteric Pupils: Present: PERRL - Neck Neck exam general surgery: Present: supple, trachea midline. Absent: lymphadenopathy - Respiratory Respiratory exam: Present: CTAB. Absent: accessory muscle use, rales, rhonchi, wheezes - Cardiovascular Cardiovascular exam: Present: RRR, +S1, +S2. Absent: diastolic murmur, gallop, rubs, systolic murmur - GI/Abdominal GI/Abdominal exam: Present: normal bowel sounds, soft, no peritoneal signs. Absent: distended, tenderness - Extremities Exam Extremities exam: Present: warm, radial pulses palpable and symmetrical. Absent : calf tenderness, cyanotic, pedal edema - Neurological Exam Neurological exam: Present: CN II-XII intact, oriented X3, no focal deficits. Absent: pronater drift, facial droop, speech deficit - Skin Skin exam: Present: dry, intact - Patient Status Disposition: Home, Self-Care Condition: Good Functional capacity at discharge: independent ambulation Overall status at discharge: patient is back to baseline - Discharge Instructions Instructions: Coronary Artery Disease (DC), Influenza (DC), Levofloxacin (By mouth), Oseltamivir (By mouth), Hyperlipidemia (DC), Weight Management (DC) Follow Up With: Ko Rivera MD [Primary Care Provider] - 10/24/17 2:00 pm - Diet and Activity Activity: increase activity as tolerated Diet: low fat, low cholesterol
--- NOTE | 2017-10-19 14:13 | Invasive Diagnostic Lab Proc ---
Name: Sonia Mcrae Date of Study: 10/19/2017 Date: 1960 Ht: 64.2in Medical Record#: [id number] Age: 57 Wt: 243.61lb Gender: Female BSA: 2.13 Order #: [id number] BMI: 41.59 Physicians Procedure Physician: Phillip Mario DO Referring MD: Referring MD: Staff Name Position Time In Terri Steven RN Monitor 11:39 AM Azam Pineda RN Scrub 11:39 AM Azam Pineda RN Utilities And Maintenance Supervisor 11:39 AM Darrian Lynn RT (R) Scrub 11:40 AM Indications Indication Abnormal Test - Stress Procedures Performed Procedure L HRT ARTERY/VENTRICLE ANGIO Pre-Procedure Checklist Informed consent is complete signed and on chart. H&P is on chart. ID band is on and ID verified with patient. Patient NPO for procedure The procedure was described for the patient and questions were answered. Blood Pressure: 114/70 ECG is on chart. Rhythm: NSR Plan of Care Patient will tolerate the procedure without complications. Adequate level of comfort will be maintained. Hemodynamics will remain stable Patient will recover from procedure without complications. Respiratory function will be maintained. Cardiac rhythm will remain stable. Patient temperature will be maintained. Patient and/or family have verbalized understanding of the procedure. Patient Education Chief Complaint/Reason for Test: Cardiac Cath Developmental Category: Adult (18-64 years) Developmentally Appropriate for Age: Yes Learning Barriers: None Education Needs: Procedure Education Method: Verbal Information Taught: Cardiac Cath Educational Evaluation: Able to repeat information Intravenous Access Time IV Size Location DC'd Fluid/Drip Rate Units RN 10:08 AM 20g 1 /" Patent On Arrival Lt Hand Allergies lisinopril Vital Signs Time BP (mmHg) HR (bpm) O2 Sat. RR (bpm) LOC 10:09 AM 114 / 70 59 98 % 16 5 = Fully awake and oriented or at pre-proc level 11:40 AM / % 5 = Fully awake and oriented or at pre-proc level 11:40 AM / % 5 = Fully awake and oriented or at pre-proc level 11:42 AM 146 / 77 48 100 % 11:46 AM 131 / 78 55 95 % 11:51 AM 152 / 74 51 95 % 11:56 AM 126 / 67 50 97 % 12:01 PM 140 / 69 50 96 % Procedural Medications Time Medication Dose Units Method Given By 11:40 AM Oxygen 2 L/min nasal cannula Azam Pineda RN 11:42 AM Versed 2 mg Intravenous Azam Pineda RN 11:46 AM Lidocaine 2% 10 ml Subcutaneous Phillip Mario DO ASA Classification: CLASS III- Severe systemic disease (i.e. prior AMI, diabetes with vascular complications, morbid obesity) May Score Preprocedure Postprocedure Activity 2- Moves 4 extremities sustained head lift Activity 2- Moves 4 extremities sustained head lift Circulation 2- SBP +/= 20 points of pre-anesthetic level Circulation 2- SBP +/= 20 points of pre-anesthetic level Consciousness 2- Awake and alert oriented x 3 Consciousness 2- Awake and alert oriented x 3 O2 Saturation 2- Able to maintain O2 satruation of 92% on room air O2 Saturation 2- Able to maintain O2 satruation of 92% on room air Respiratory 2- Able to deep breathe and cough well Respiratory 2- Able to deep breathe and cough well Total Score 10 Total Score 10 Contrast Agent: Isovue Diagnostic Contrast: 50 ml Total Contrast: 50 ml Fluoro Dose: 468 mGy Procedure Log Time Note Enter By 11:39 AM Pt arrived to metallurgy laboratory technician 2 at 11:39 [facility] 11:39 AM Terri Steven RN Position: Monitor Time in: 11:39 [facility] 11:40 AM Azam Pineda RN Position: Utilities And Maintenance Supervisor Time in: 11:39 mm 11:40 AM Darrian Lynn (R) Position: Scrub Time in: 11:40 [facility] 11:40 AM Patient charges- Angio tray pack, Navilyst 3mm J, Pulse Oximetry and ACIST tubing and transducer [facility] 11:40 AM Case Delayed No mm 11:40 AM Hair removed from procedure site in procedure lab using clippers. Bilateral groin prepped with Chloraprep by Darrian Lynn RT (R), then patient was draped. Skin intact. mm 11:40 AM Physican paged/called 11:40. [facility] 11:40 AM Physican responded and notified patient is ready 11:40 [facility] 11:40 AM Physician arrived 11:40 [facility] 11:40 AM Meet and greet completed [facility] 11:40 AM Sign in performed according to hospital policy. mm 11:40 AM Procedure start 11:40 oumm 11:40 AM CathStat 11:40 AM Vitals capture started with the following parameters, Patient=Adult, Interval=5 min, Initial Lttxybhx=350 mmHg, Deflation Rate=5 mmHg, Cuff placed on Right Arm 11:40 AM Time: 11:40 Oxygen on at 2 L/min per nasal cannula by Azam Pineda RN eliermoni 11:40 AM Time: :40 Patient comfortable and pain free: Yes oumm 11:40 AM Time: 11:40LOC: 5 = Fully awake and oriented or at pre-proc level tsoummers 11:41 AM Recorded ECG: HR=50 Condition=Condition 1 11:42 AM HR=48 bpm, AXFT=168/77 mmhg, XlV2=406.0 %, Comment=SB 11:42 AM Reference ECG taken 11:42 AM Pressure channel 2 zeroed. 11:42 AM Time: 11:42 Versed 2 mg Intravenous Given by Azam Pineda RN [facility] 11:45 AM ASA Class CLASS III- Severe systemic disease (i.e. prior AMI, diabetes with vascular complications, morbid obesity) tsmm 11:45 AM Clinical Presentation: No symptoms, no angina tsoumm 11:45 AM Time out performed according to hospital policy 11:46 AM Time: 11:46 10 ml Lidocaine 2% to right groin Subcutaneous Given by Phillip Mario DO oumm 11:46 AM HR=55 bpm, YCSD=833/78 mmhg, SpO2=95.0 %, Comment=SB 11:47 AM Micro-Introducer Kit utilized for sheath placement 11:48 AM Access obtained by percutaneous puncture. 4Fr Micro-introducer sheath placed in right Femoral artery. [id number] mm 11:49 AM Sheath exchanged for a 6 Fr 11 cm Cordis Margarita sheath [id number] mm 11:50 AM 0.035 145cm Navilyst 3mmJ wire [id number] mm 11:50 AM 6Fr FR 4 catheter inserted over the wire DNC mm 11:50 AM Catheter selectively placed in left ventricle tsmm 11:50 AM wire removed [facility] 11:50 AM Bolus angiogram of left Ventricle complete: hand injection [facility] 11:50 AM Recorded Pressure: LV, HR=52, Condition=Condition 1 (Left Ventricle) LV 137/-13/14 11:51 AM Recorded Pressure: LV, HR=51, Condition=Condition 1 (Left Ventricle) LV 113/-5/-2 11:51 AM Recorded Pressure: LV, Ao, HR=51, Condition=Condition 1 (Left Ventricle) LV 116/-9/-3, (Aorta) Ao 129/43/78 11:51 AM Recorded Pressure: Ao, HR=51, Condition=Condition 1 (Aorta) Ao 120/52/76 11:51 AM RCA angiography performed in multiple views. [facility] 11:51 AM HR=51 bpm, BECX=098/74 mmhg, SpO2=95.0 % 11:52 AM Catheter removed [facility] 11:52 AM 6Fr FL 4 catheter inserted over the wire DNC [facility] 11:53 AM LCA angiography performed in multiple views. [facility] 11:54 AM Recorded Pressure: Ao, HR=50, Condition=Condition 1 (Aorta) Ao 104/34/58 11:55 AM Bolus angiogram of right Femoral complete: hand injection [facility] 11:55 AM Time: 11:40 Patient comfortable and pain free: Yes [facility] 11:55 AM Time: 11:40LOC: 5 = Fully awake and oriented or at pre-proc level [facility] 11:55 AM Procedure completed at 11:55 [facility] 11:56 AM HR=50 bpm, YMHK=299/67 mmhg, SpO2=97.0 %, Comment=SB 11:59 AM Sign out completed: Radiation Dose 468.18 mGy Fluoro Time: 2.2 Isovue 370 - 200ml contrast 50 ml given by Phillip Mraio DO. Complications: NoneCardiac Rehab Consult needed: NoConfirmed administered medications: Yes [facility] 11:59 AM Isovue 370 - 200ml,1 Bottle(s) used. [facility] 11:59 AM Arterial sheath pulled using manual compression and V+ Pad for 15 minutes by Azam Pineda RN [facility] 11:59 AM Estimated Blood Loss: minimal [facility] 11:59 AM Post ECG Sinus Bradycardia [facility] 11:59 AM Post Blood Pressure 126/67 [facility] 12:00 PM Information taught Cardiac Cath [facility] 12:00 PM Education needs Procedure, Plan of Care, and Responsibilities of [facility] 12[facility] PM Learning barriers :None [facility] 12:[facility] PM Education Methods Verbal [facility] 12:[facility] PM Education evaluation Able to repeat information [facility] 12:00 PM Site status No bleeding/hematoma - Rt Groin as reported by Azam Pineda RN at 12:00 [facility] 12:00 PM Plavix, Effient or Brilinta given No tsoummers 12:00 PM Delay to floor No tsoummers 12:00 PM Complications: None [facility] 12:00 PM Fluoro Time: 2.2 [facility] 12[facility]00 PM Isovue 370 - 200ml contrast [address] Mario. [facility] 12:01 PM Radiation Dose 468.18 mGy [facility] 12:01 PM HR=50 bpm, ERVI=748/69 mmhg, SpO2=96.0 %, Comment=SB 12:02 PM Report given to Jacquelyn MURGUIA Pt taken to 3B Room #34. 12:01 [facility] 12:03 PM Lesion found in Proximal Circumflex. Pre Stenosis: 30 Pre OSMIN Flow: [facility] 12:03 PM Circumflex, Obtuse Marginal, Left Posterior Descending, and Left Posterolateral Coronary Arteries with 30 % stenosis. If graft is supplying this area, 0 % stenosis [facility] 12:07 PM Coronary Dominance: right [facility] 12:10 PM Family placed in consult [facility]. [facility] 12:20 PM Site status No bleeding/hematoma - Rt Groin as reported by Azam Pineda RN at 12:20 [facility] 12:20 PM Patient out of room: 12:20 [facility] Complications Complication None Hemodynamics Pressures Site Systolic/A Wave Diastolic/V Wave Mean LV 137 -13 14 LV 113 -5 -2 LV 116 -9 -3 AO 129 43 78 AO 120 52 76 AO 104 34 58 Post Procedure Information Blood Pressure: 126/67 mmHg Rhythm: Sinus Bradycardia Post procedural instructions were given Closure Device Time Device Success/Fail 10/19/2017 12:02:00 PM Manual Compression Successful Site Checks Time Location Status Staff Sheath In? Note 12:00 PM Rt Groin No bleeding/hematoma Azam Pineda RN 12:20 PM Rt Groin No bleeding/hematoma Azam iPneda RN Pulses Time Site Pre-Procedure Post-Procedure Note 10/19/2017 10:08:00 AM Bilateral DP & PT 1+ 10/19/2017 10:08:00 AM Bilateral radial 2+ Updated by Terri Steven RN on 10/19/2017 2:05:33 PM electronically signed on 10/19/2017 2:05:53 PM with status of Final
[2017-10-19 16:40] VITALS: BP 107/70
--- NOTE | 2017-10-20 11:59 | Electrocardiograph Report ---
[place] [id number] Test Date: 2017-10-15 Pat Name: Sonia Mcrae Department: 104 Room: 3B Gender: F Financial Retirement Plan Specialist: TMR : 1960 Requested By: Miguel Perez Order Number: [id number] Reading MD: Basil Porter Measurements Intervals [place] Rate: 47 P: 60 IA: 152 QRS: 10 QRSD: 110 T: 59 QT: 518 QTc: 482 Interpretive Statements SINUS BRADYCARDIA LEFT VENTRICULAR HYPERTROPHY AND ST-T CHANGES POSSIBLE INFERIOR MYOCARDIAL INFARCTION, PROBABLY OLD Electronically Signed On 10-20-2017 11:57:58 EDT by Basil Porter
--- NOTE | 2017-10-20 12:00 | Electrocardiograph Report ---
[place] [address] Test Date: 2017-10-15 Pat Name: Sonia Mcrae Department: 104 Room: 3B Gender: F Electron Gun Inspector: KARELY : 1960 Requested By: Miguel Perez Order Number: [id number] Reading MD: Basil Porter Measurements Intervals [place] Rate: 47 P: 37 ID: 148 QRS: 2 QRSD: 110 T: 48 QT: 512 QTc: 477 Interpretive Statements SINUS BRADYCARDIA POSSIBLE LEFT VENTRICULAR HYPERTROPHY WITH ST-T CHANGE POSSIBLE INFERIOR MYOCARDIAL INFARCTION, PROBABLY OLD Electronically Signed On 10-20-2017 11:58:43 EDT by Basil Porter
--- NOTE | 2017-10-20 12:01 | Electrocardiograph Report ---
[place] [address] Test Date: 2017-10-15 Pat Name: Sonia Mcrae Department: 104 Room: 3B Gender: F Tv Production Assistant: TMR : 1960 Requested By: Miguel Perez Order Number: [id number] Reading MD: Basil Porter Measurements Intervals [place] Rate: 52 P: 55 UT: 150 QRS: 30 QRSD: 110 T: 57 QT: 501 QTc: 482 Interpretive Statements SINUS BRADYCARDIA POSSIBLE INFERIOR MYOCARDIAL INFARCTION, PROBABLY OLD Electronically Signed On 10-20-2017 11:59:43 EDT by Basil Porter
--- NOTE | 2017-10-20 12:03 | Electrocardiograph Report ---
[place] [address] Test Date: 2017-10-15 Pat Name: Sonia Mcrae Department: 104 Room: [facility] Gender: F Cabinet And Trim Installer: TMR : 1960 Requested By: Miguel Perez Order Number: [id number] Reading MD: Basil Porter Measurements Intervals [place] Rate: 47 P: 16 FL: 131 QRS: 61 QRSD: 110 T: 74 QT: 506 QTc: 471 Interpretive Statements SINUS BRADYCARDIA Electronically Signed On 10-20-2017 12:01:54 EDT by Basil Porter
== END 2017-10-19 16:59 | disposition home or self-care (01) | DRG 287 ==
LOC: EMEROO 12:02 → 3BNU 12:02
PROVIDERS: ADMIT Internal Medicine; ATTEND Registered Nurse